=== PATIENT | female | born 1960 | race Caucasian/White ===

== ENCOUNTER 2017-07-24 16:47 | Observation (INO) | payer MEDICAID ==
[2017-07-24 16:48] VITALS: BMI 25.7
--- NOTE | 2017-07-24 17:45 | ED PDOC ---
HPI: Hypertension/Hypotension Time Seen by Provider: 07/24/17 16:56 Chief Complaint (Nursing): High Blood Pressure Chief Complaint (Provider): High blood pressure History Per: Patient Additional Complaint(s): 57yo female with history of hypertension, ESRD, diabetes, presents to ED for evaluation of elevated blood pressure. Patient was receiving her dialysis and just prior to completion, her blood pressure was markedly elevated and the session ended 30 minutes before completion. Patient states she takes Nifedapine 90mg but did not take it this morning; she reports the dosage of her Nifedapine was recently increased. Patient also states she feels generalized weakness, and mild headaches. For the past 2 weeks, she feels an "infection" in her left eye and for the past 4 weeks an "infection" to her right middle fingertip. She denies any fever, chills, chest pain, shortness of breath. She has no other medical complaints. PCP: Dr. Campbell Past Medical History Reviewed: Historical Data, Nursing Documentation, Vital Signs Vital Signs: Last Vital Signs Temp 97.7 F 07/24/17 16:50 Pulse 64 07/24/17 16:50 Resp 20 07/24/17 16:50 BP 233/99 H 07/24/17 17:19 Pulse Ox 98 07/24/17 16:50 - Medical History PMH: Bronchitis, COPD, Diabetes, HTN, End Stage Renal Disease, Chronic Kidney Disease Denies: HIV, Kidney Stones - Surgical History Other surgeries: AV shunt (previously on left arm but that malfunctioned, now on right arm) - Family History Family History: States: Unknown Family Hx, Diabetes, Hypertension - Social History Current smoker - smoking cessation education provided: Yes Alcohol: None Drugs: Denies - Immunization History Hx Tetanus Toxoid Vaccination: No Hx Influenza Vaccination: No Hx Pneumococcal Vaccination: No - Home Medications Home Medications: Ambulatory Orders Medication Instructions Recorded Aspirin [Aspirin Chewable] 81 mg PO DAILY 11/23/15 Atorvastatin [Lipitor] 40 mg PO DAILY 11/23/15 Cinacalcet [Sensipar] 60 mg PO DAILY 11/23/15 Clopidogrel [Plavix] 75 mg PO DAILY 11/23/15 Ferrous Sulfate [Feosol] 200 mg PO BID 11/23/15 NIFEdipine ER [Procardia XL] 90 mg PO DAILY 11/23/15 SITagliptin [Januvia] 50 mg PO DAILY 11/23/15 Saccharomyces Boulardi [Florastor] 250 mg PO DAILY 11/23/15 hydrALAZINE [Apresoline] 50 mg PO BID 11/23/15 - Allergies Allergies/Adverse Reactions: Allergies Allergy/AdvReac Type Severity Reaction Status Date / Time No Known Allergies Allergy Verified 07/24/17 16:49 Review of Systems ROS Statement: Except As Marked, All Systems Reviewed And Found Negative (as per HPI) Constitutional: Positive for: Weakness. Negative for: Fever, Chills Eyes: Positive for: Other (eye "infection") Cardiovascular: Positive for: Other (elevated blood pressure) Musculoskeletal: Positive for: Other ("infection" right middle finger) Neurological: Positive for: Headache Physical Exam - Reviewed Nursing Documentation Reviewed: Yes Vital Signs Reviewed: Yes - Physical Exam Appears: Positive for: Non-toxic, No Acute Distress (chronically ill appearing, tired) Head Exam: Positive for: ATRAUMATIC, NORMOCEPHALIC Skin: Positive for: Warm, Dry Eye Exam: Positive for: Other (ild swelling of left eyelid, no rtuthema, tosis or eyelid) ENT: Negative for: Pharyngeal Erythema, Tonsillar Exudate Neck: Positive for: Painless ROM, Supple Cardiovascular/Chest: Positive for: Regular Rate, Rhythm. Negative for: Murmur Respiratory: Positive for: Normal Breath Sounds. Negative for: Wheezing Gastrointestinal/Abdominal: Positive for: Soft. Negative for: Tenderness Back: Positive for: Normal Inspection. Negative for: Decreased ROM Extremity: Positive for: Other (Palpable thirll right upper extremity, no edema noted. RIGHT hand: 3rd digit fingertip with eschar lesion at distal point and diffuse edema/erythema of fingertip) Lymphatic: Negative for: Adenopathy Neurologic/Psych: Positive for: Alert. Negative for: Motor/Sensory Deficits - Laboratory Results Result Diagrams: 07/24/17 17:38 07/24/17 17:38 - ECG ECG: Positive for: Interpreted By Me, Viewed By Me ECG Rhythm: Positive for: Sinus Rhythm Interpretation Of ECG: Peaked waves V4, V5. Poor baseline. O2 Sat by Pulse Oximetry: 98 (RA) Pulse Ox Interpretation: Normal Medical Decision Making Medical Decision Making: Impression: Hypertension, end stage renal disease Differential diagnosis (including but not limited to): Acute on chronic renal failure, subdural hematoma, electrolyte abnormalities, malignant hypertension, fluid overload Plan: -- Labs -- CT Head w/o contrast -- Catapres 0.2 mg PO -- CXR Time: 1752 CXR FINDINGS: LUNGS: No active pulmonary disease. PLEURA: No significant pleural effusion identified, no pneumothorax apparent. CARDIOVASCULAR: Cardiomegaly, pulmonary vascular plethora. OSSEOUS STRUCTURES: No significant abnormalities. VISUALIZED UPPER ABDOMEN: Normal. OTHER FINDINGS: None. IMPRESSION: Cardiomegaly/pulmonary vascular congestion. No significant interval change compared to the prior examination(s). Time: 1830 CT Head FINDINGS: HEMORRHAGE: No intracranial hemorrhage. BRAIN: No mass effect or edema. No atrophy or chronic microvascular ischemic changes. VENTRICLES: Unremarkable. No hydrocephalus. CALVARIUM: Unremarkable. PARANASAL SINUSES: Unremarkable as visualized. No significant inflammatory changes. MASTOID AIR CELLS: Unremarkable as visualized. No inflammatory changes. OTHER FINDINGS: None. IMPRESSION: No acute intracranial abnormalities. No significant findings to account for the clinical presentation. Lab derangements consistent with renal failure, potassium wnl. BP improved but pt needs hospitalization for more stable BP management. Scribe Attestation: Documented by Yelena Cuello acting as a scribe for Sima Rivera MD. Provider Attestation: All medical record entries made by the Scribe were at my direction and personally dictated by me. I have reviewed the chart and agree that the record accurately reflects my personal performance of the history, physical exam, medical decision making, and the department course for this patient. I have also personally directed, reviewed, and agree with the discharge instructions and disposition. Disposition - Clinical Impression Clinical Impression: HTN (hypertension), Uncontrolled hypertension Discussed With DrJose: Hussain Campbell Counseled Patient/Family Regarding: Studies Performed, Diagnosis - Disposition Disposition Time: 19:40 Condition: FAIR - Pt Status Changed To: Hospital Disposition Of: Observation - POA Present On Arrival: None
[2017-07-24 18:12] LABS: BASO # 0.1 K/uL (0.0-0.2); BASO % 2.2 % (0.0-2.0); EOS # 0.1 K/uL (0.0-0.7); EOS % 2.5 % (0.0-4.0); HEMOGLOBIN 11.9 g/dL (12.0-16.0); LYMPH # 1.1 K/uL (1.0-4.3); LYMPH % 22.3 % (20.0-40.0); MEAN CELL VOLUME 87.6 fl (81.0-99.0); MEAN CORPUSCULAR HEMOGLOBIN 27.6 pg (27.0-31.0); MEAN CORPUSCULAR HGB CONC 31.4 g/dL (33.0-37.0); MEAN PLATELET VOLUME 10.8 fl (7.2-11.7); MONO # 0.4 K/uL (0.0-0.8); NEUT # 3.1 K/uL (1.8-7.0); RBC 4.32 Mil/uL (3.80-5.20); RED CELL DISTRIBUTION WIDTH 17.2 % (11.5-14.5); WHITE BLOOD COUNT 4.7 K/uL (4.8-10.8)
[2017-07-24 18:24] LABS: ALBUMIN 4.3 g/dL (3.5-5.0); CALCIUM 8.9 mg/dL (8.4-10.2)
[2017-07-24 18:26] LABS: INR 1.4 (0.9-1.2); PARTIAL THROMBOPLASTIN TIME 37.6 Seconds (25.6-37.1); PROTHROMBIN TIME 15.3 Seconds (9.8-13.1)
--- NOTE | 2017-07-24 18:27 | CT ---
PROCEDURE: CT HEAD WITHOUT CONTRAST. HISTORY: Hypertension COMPARISON: None available. TECHNIQUE: Axial computed tomography images were obtained through the head/brain without intravenous contrast. Radiation dose: Total exam DLP = 803.48 mGy-cm. This CT exam was performed using one or more of the following dose reduction techniques: Automated exposure control, adjustment of the mA and/or kV according to patient size, and/or use of iterative reconstruction technique. FINDINGS: HEMORRHAGE: No intracranial hemorrhage. BRAIN: No mass effect or edema. No atrophy or chronic microvascular ischemic changes. VENTRICLES: Unremarkable. No hydrocephalus. CALVARIUM: Unremarkable. PARANASAL SINUSES: Unremarkable as visualized. No significant inflammatory changes. MASTOID AIR CELLS: Unremarkable as visualized. No inflammatory changes. OTHER FINDINGS: None. IMPRESSION: No acute intracranial abnormalities. No significant findings to account for the clinical presentation.
--- NOTE | 2017-07-24 18:46 | RAD ---
HISTORY: Hypertension. COMPARISON: 11/22/2015 FINDINGS: LUNGS: No active pulmonary disease. PLEURA: No significant pleural effusion identified, no pneumothorax apparent. CARDIOVASCULAR: Cardiomegaly, pulmonary vascular plethora. OSSEOUS STRUCTURES: No significant abnormalities. VISUALIZED UPPER ABDOMEN: Normal. OTHER FINDINGS: None. IMPRESSION: Cardiomegaly/pulmonary vascular congestion. No significant interval change compared to the prior examination(s).
[2017-07-24 19:12] LABS: TROPONIN I 0.013 ng/mL (0.00-0.120)
[2017-07-24] MEDS ORDERED: NIFEdipine 90 mg ER Tab PO STA (23:09)
--- NOTE | 2017-07-24 23:38 | PCM.RRT ---
GRAIN SCOOPER Nurse Assessment - Situation GRAIN SCOOPER Responder Arrival Time: 23:02 Location: [address] [place] [address] Room Number: [id number] GRAIN SCOOPER Reason for Call: Hypertension GRAIN SCOOPER Called By: RN - IV IV Inserted during GRAIN SCOOPER?: No - Respiratory Oxygen Delivery Method: Room Air - Medication Medications Administered During GRAIN SCOOPER: hydralazine. procardia xl CPR started during GRAIN SCOOPER?: No I.Reason for GRAIN SCOOPER - A) Acute Change in Patient: Subjective: GRAIN SCOOPER was called for 57 y/o F with PMH of hypertension, ESRD, and diabetes for hypertensive emergency. Upon arrival, BP 235/93, PP65, Spo2 100%RA, patient was alert, awake, oriented and seemed agitated. Patient was given STAT Hydralazine 10mg IV and procardia xl 90mg PO. Patient remained stable at the end of GRAIN SCOOPER. Will follow up with patient for BP changes. - Constitutional Appears: No Acute Distress - Eyes Eye Exam: Normal appearance - Respiratory Exam Respiratory Exam: Clear to Ausculation Bilateral, NORMAL BREATHING PATTERN - Cardiovascular Exam Cardiovascular Exam: REGULAR RHYTHM - GI/Abdominal Exam GI & Abdominal Exam: Soft, Normal Bowel Sounds - Neurological Exam Neurological Exam: Alert, Awake, Oriented x3 - Extremities Exam Extremities Exam: Normal Capillary Refill
[2017-07-25] MEDS ORDERED: Mupirocin 2% Cream TOP SCH (09:00)
[2017-07-25] MEDS ORDERED: NIFEdipine 90 mg ER Tab PO SCH (09:00)
--- NOTE | 2017-07-25 09:27 | CP.PCM.HP ---
History of Present Illness - History of Present Illness History of Present Illness: CC: elevated BP HPI: 57 y/o woman w/ pmh of HTN, ESRD HD M/W/F, DM2, presented to ED for elevated blood pressure. Patient was receiving her dialysis as scheduled and prior to completion, her blood pressure was markedly elevated; thus ending the session 30 minutes before completion. Patient reports she takes Nifedapine 90mg but did not take it yesterday morning. Patient also states she feels generalized weakness, and mild headaches. Patient denies any fever, chills, chest pain, shortness of breath, nausea, vomiting, diarrhea, or dyauria. Patient has no other medical complaints. PMD: Dr. Campbell PMH: HTN, ESRD HD M/W/F, DM2 meds: see med list allergies: NKDA PSH: AV fistula on right arm, Av fistula on left arm (non-functioning), left 1st toe amputation Fam: HTN, DM2 SOC: denies smoking, alcohol, and drugs ROS: 12 points assessed and negative unless otherwise reported in HPI patient seen and examined this morning at bedside w/ Dr. Campbell Present on Admission - Present on Admission Any Indicators Present on Admission: No History of DVT/PE: No History of Uncontrolled Diabetes: No Urinary Catheter: No Decubitus Ulcer Present: No Review of Systems - Review of Systems All systems: reviewed and no additional remarkable complaints except - Constitutional Constitutional: Headache. absent: Chills, Fever - EENT Eyes: absent: Change in Vision - Cardiovascular Cardiovascular: absent: Chest Pain, Leg Edema, Palpitations - Respiratory Respiratory: absent: Cough, Dyspnea - Gastrointestinal Gastrointestinal: absent: Abdominal Pain, Diarrhea, Nausea, Vomiting - Genitourinary Genitourinary: absent: Dysuria - Integumentary Integumentary: absent: Rash Past Patient History - Past Medical History & Family History Past Medical History?: Yes - Past Social History Smoking Status: Never Smoked - CARDIAC Hx Cardiac Disorders: Yes Hx Hypertension: Yes - PULMONARY Hx Respiratory Disorders: Yes Hx Bronchitis: Yes Hx Chronic Obstructive Pulmonary Disease (COPD): Yes - NEUROLOGICAL Hx Neurological Disorder: No - HEENT Hx HEENT Problems: Yes Other/Comment: glasses - RENAL Hx Chronic Kidney Disease: Yes Hx Dialysis: Yes (mwf) Type of Dialysis Access: AV SHUNT Hx Kidney Stones: No - ENDOCRINE/METABOLIC Hx Endocrine Disorders: Yes Hx Diabetes Mellitus Type 2: Yes - HEMATOLOGICAL/ONCOLOGICAL Hx Blood Disorders: No Hx AIDS: No Hx Human Immunodeficiency Virus (HIV): No - INTEGUMENTARY Hx Dermatological Problems: Yes Other/Comment: dry skin - MUSCULOSKELETAL/RHEUMATOLOGICAL Hx Musculoskeletal Disorders: No Hx Falls: No - GASTROINTESTINAL Hx Gastrointestinal Disorders: No - GENITOURINARY/GYNECOLOGICAL Hx Genitourinary Disorders: No - PSYCHIATRIC Hx Psychophysiologic Disorder: No Hx Substance Use: No - SURGICAL HISTORY Hx Vascular Surgery: Yes (Right and Left AV fistula placement) Other/Comment: Left great toe amputation (2002); Tubal ligation - ANESTHESIA Hx Anesthesia: Yes Hx Anesthesia Reactions: No Meds Allergies/Adverse Reactions: Allergies Allergy/AdvReac Type Severity Reaction Status Date / Time No Known Allergies Allergy Verified 07/24/17 16:49 Physical Exam - Constitutional Appears: Non-toxic, No Acute Distress - Head Exam Head Exam: ATRAUMATIC, NORMAL INSPECTION, NORMOCEPHALIC - Eye Exam Eye Exam: Normal appearance - ENT Exam ENT Exam: Mucous Membranes Moist - Neck Exam Neck exam: Positive for: Full Rom. Negative for: Tenderness - Respiratory Exam Respiratory Exam: Clear to Auscultation Bilateral. absent: Accessory Muscle Use , Decreased Breath Sounds, Rales, Rhonchi, Wheezes, Respiratory Distress - Cardiovascular Exam Cardiovascular Exam: REGULAR RHYTHM. absent: Tachycardia - GI/Abdominal Exam GI & Abdominal Exam: Normal Bowel Sounds, Soft. absent: Distended, Tenderness - Extremities Exam Extremities exam: Negative for: calf tenderness, pedal edema, tenderness Additional comments: right middle finger ulcer - Neurological Exam Neurological exam: Alert, CN II-XII Intact, Oriented x3 - Skin Skin Exam: Dry, Normal Color, Warm Results - Vital Signs Recent Vital Signs: Last Vital Signs Temp 98.3 F 07/25/17 08:38 Pulse 60 07/25/17 08:38 Resp 18 07/25/17 08:38 BP 152/69 H 07/25/17 08:38 Pulse Ox 97 07/25/17 08:38 - Labs Result Diagrams: 07/24/17 17:38 07/24/17 17:38 Labs: Laboratory Results - last 24 hr 07/24/17 07/24/17 07/24/17 17:24 17:38 17:38 WBC 4.7 L RBC 4.32 Hgb 11.9 L Hct 37.8 MCV 87.6 D MCH 27.6 MCHC 31.4 L RDW 17.2 H Plt Count 110 L D MPV 10.8 Neut % (Auto) 65.0 Lymph % (Auto) 22.3 [place] % (Auto) 8.0 Eos % (Auto) 2.5 Baso % (Auto) 2.2 H Neut # (Auto) 3.1 Lymph # (Auto) 1.1 [place] # (Auto) 0.4 Eos # (Auto) 0.1 Baso # (Auto) 0.1 PT INR APTT Sodium 141 Potassium 5.0 Chloride 95 L Carbon Dioxide 21 L Anion Gap 30 H BUN 45 H Creatinine 4.6 H Est GFR ( Amer) 12 Est GFR (Non-Af Amer) 10 POC Glucose (mg/dL) 137 H Random Glucose 142 H Calcium 8.9 Phosphorus 3.3 Magnesium 2.2 Total Bilirubin 0.9 AST 29 ALT 34 Alkaline Phosphatase 177 H Troponin I 0.0130 NT-Pro-B Natriuret Pep 17928 H Total Protein 8.9 H Albumin 4.3 Globulin 4.5 H Albumin/Globulin Ratio 1.0 07/24/17 07/25/17 17:38 05:11 WBC RBC Hgb Hct MCV MCH MCHC RDW Plt Count MPV Neut % (Auto) Lymph % (Auto) [place] % (Auto) Eos % (Auto) Baso % (Auto) Neut # (Auto) Lymph # (Auto) [place] # (Auto) Eos # (Auto) Baso # (Auto) PT 15.3 H INR 1.4 H APTT 37.6 H Sodium Potassium Chloride Carbon Dioxide Anion Gap BUN Creatinine Est GFR ( Amer) Est GFR (Non-Af Amer) POC Glucose (mg/dL) 172 H Random Glucose Calcium Phosphorus Magnesium Total Bilirubin AST ALT Alkaline Phosphatase Troponin I NT-Pro-B Natriuret Pep Total Protein Albumin Globulin Albumin/Globulin Ratio Assessment & Plan (1) Hypertensive encephalopathy Status: Acute (2) HTN (hypertension) Status: Chronic (3) DM2 (diabetes mellitus, type 2) Status: Chronic (4) ESRD on dialysis Status: Chronic - Assessment and Plan (Free Text) Plan: c/w present management afebrile, non-tachycardic, BP improved (162/61 mm Hg) nephrology consult ordered CBC: 4.7>11.9/37.8<110 CMP: 141/5.0, 95/21, 45/4.6, glucose 142, AST 39, ALT 44, alk phos 177 phosphorous 3.3 magnesium 2.2 troponin 0.0130 pro-BNP 24606 (preserved EF CHF based on previous echo) head CT: no intracranial abnormalities, no hemorrhage CXR: no active pulmonary disease process c/w home medications start clonidine 0.2 mg PO Q8h mupirocin ointment for right middle finger ulcer f/u hand XR prophylactic measures: DVT heparin 5,000 units SC Q12 monitor for acute changes
--- NOTE | 2017-07-25 11:28 | CP.PCM.CON ---
History of Present Illness - History of Present Illness History of Present Illness: This patient is 57 years of age female known to me decision as disease on maintenance hemodialysis 3 times a week Monday patient was admitted to the emergency room because of high blood pressure also she was complaining of pain in the tip of the finger. Patient known to be noncompliant and she is on multiple antihypertensive medication but she is taking all the medications she is finding excuses not to take some medications also noncompliance with the dialysis . Past medical history end stage renal disease on dialysis Monday #2 hypertension #3 diabetes mellitus Social history not contributory Review of systems see below Review of Systems - Constitutional Constitutional: absent: Chills, Night Sweats - EENT Eyes: Blurred Vision Nose/Mouth/Throat: As Per HPI. absent: Nose Pain, Post Nasal Drip - Cardiovascular Cardiovascular: absent: Acrocyanosis, Chest Pain, Dyspnea, Edema, Palpitations - Respiratory Respiratory: absent: Cough, Dyspnea, Hemoptysis - Gastrointestinal Gastrointestinal: absent: Abdominal Pain, Coffee Ground Emesis - Genitourinary Genitourinary: Nocturia - Musculoskeletal Musculoskeletal: Muscle Weakness. absent: Back Pain, Numbness - Integumentary Integumentary: Dry Skin - Neurological Neurological: absent: Confusion, Numbness, Focal Weakness - Hematologic/Lymphatic Hematologic: absent: Easy Bleeding Past Patient History - Past Medical History & Family History Past Medical History?: Yes - Past Social History Smoking Status: Never Smoked - CARDIAC Hx Cardiac Disorders: Yes Hx Hypertension: Yes - PULMONARY Hx Respiratory Disorders: Yes Hx Bronchitis: Yes Hx Chronic Obstructive Pulmonary Disease (COPD): Yes - NEUROLOGICAL Hx Neurological Disorder: No - HEENT Hx HEENT Problems: Yes Other/Comment: glasses - RENAL Hx Chronic Kidney Disease: Yes Hx Dialysis: Yes (mwf) Type of Dialysis Access: AV SHUNT Hx Kidney Stones: No - ENDOCRINE/METABOLIC Hx Endocrine Disorders: Yes Hx Diabetes Mellitus Type 2: Yes - HEMATOLOGICAL/ONCOLOGICAL Hx Blood Disorders: No Hx AIDS: No Hx Human Immunodeficiency Virus (HIV): No - INTEGUMENTARY Hx Dermatological Problems: Yes Other/Comment: dry skin - MUSCULOSKELETAL/RHEUMATOLOGICAL Hx Musculoskeletal Disorders: No Hx Falls: No - GASTROINTESTINAL Hx Gastrointestinal Disorders: No - GENITOURINARY/GYNECOLOGICAL Hx Genitourinary Disorders: No - PSYCHIATRIC Hx Psychophysiologic Disorder: No Hx Substance Use: No - SURGICAL HISTORY Hx Vascular Surgery: Yes (Right and Left AV fistula placement) Other/Comment: Left great toe amputation (2002); Tubal ligation - ANESTHESIA Hx Anesthesia: Yes Hx Anesthesia Reactions: No Meds Allergies/Adverse Reactions: Allergies Allergy/AdvReac Type Severity Reaction Status Date / Time No Known Allergies Allergy Verified 07/24/17 16:49 - Medications Medications: Current Medications Acetaminophen (Tylenol 325mg Tab) 325 mg PO Q4 PRN PRN Reason: Headache Aspirin (Aspirin Chewable) 81 mg PO DAILY [facility] Last Admin: 07/25/17 09:21 Dose: 81 mg Atorvastatin Calcium (Lipitor) 40 mg PO HS [facility] Cinacalcet (Sensipar) 90 mg PO DAILY [facility] Last Admin: 07/25/17 09:20 Dose: 90 mg Clonidine HCl (Catapres) 0.1 mg PO Q6 PRN PRN Reason: Other Clonidine HCl (Catapres) 0.2 mg PO Q8 [facility] Last Admin: 07/25/17 10:09 Dose: 0.2 mg Clopidogrel Bisulfate (Plavix) 75 mg PO DAILY [facility] Heparin Sodium (Porcine) (Heparin) 5,000 units SC Q12 [facility] PRN Reason: Protocol Last Admin: 07/25/17 09:22 Dose: 5,000 units Hydralazine HCl (Apresoline) 20 mg PO DAILY [facility] Last Admin: 07/25/17 09:21 Dose: 20 mg Mupirocin (Bactroban Cream) 1 applic TOP BID [facility] Last Admin: 07/25/17 10:14 Dose: 1 applic Nifedipine (Procardia Xl) 90 mg PO DAILY [facility] Last Admin: 07/25/17 09:21 Dose: 90 mg Sitagliptin Phosphate (Januvia) 25 mg PO DAILY [facility] Physical Exam - Constitutional Appears: No Acute Distress - Eye Exam Eye Exam: absent: Conjunctival injection - ENT Exam ENT Exam: Mucous Membranes Moist - Neck Exam Neck exam: Negative for: Lymphadenopathy - Respiratory Exam Respiratory Exam: absent: Chest Wall Tenderness, NORMAL BREATHING PATTERN - Cardiovascular Exam Cardiovascular Exam: REGULAR RHYTHM. absent: Gallop, JVD, Rubs - GI/Abdominal Exam GI & Abdominal Exam: Normal Bowel Sounds. absent: Guarding - Extremities Exam Extremities exam: Negative for: calf tenderness - Back Exam Back exam: absent: CVA tenderness (L), CVA tenderness (R) - Neurological Exam Neurological exam: Alert - Psychiatric Exam Psychiatric exam: Normal Affect Results - Vital Signs Recent Vital Signs: Last Vital Signs Temp 98.3 F 07/25/17 08:38 Pulse 57 L 07/25/17 10:09 Resp 18 07/25/17 08:38 BP 158/68 H 07/25/17 10:09 Pulse Ox 97 07/25/17 08:38 - Labs Result Diagrams: 07/24/17 17:38 07/24/17 17:38 Labs: Laboratory Results - last 24 hr 07/24/17 07/24/17 07/24/17 17:24 17:38 17:38 WBC 4.7 L RBC 4.32 Hgb 11.9 L Hct 37.8 MCV 87.6 D MCH 27.6 MCHC 31.4 L RDW 17.2 H Plt Count 110 L D MPV 10.8 Neut % (Auto) 65.0 Lymph % (Auto) 22.3 [place] % (Auto) 8.0 Eos % (Auto) 2.5 Baso % (Auto) 2.2 H Neut # (Auto) 3.1 Lymph # (Auto) 1.1 [place] # (Auto) 0.4 Eos # (Auto) 0.1 Baso # (Auto) 0.1 PT INR APTT Sodium 141 Potassium 5.0 Chloride 95 L Carbon Dioxide 21 L Anion Gap 30 H BUN 45 H Creatinine 4.6 H Est GFR ( Amer) 12 Est GFR (Non-Af Amer) 10 POC Glucose (mg/dL) 137 H Random Glucose 142 H Calcium 8.9 Phosphorus 3.3 Magnesium 2.2 Total Bilirubin 0.9 AST 29 ALT 34 Alkaline Phosphatase 177 H Troponin I 0.0130 NT-Pro-B Natriuret Pep 60744 H Total Protein 8.9 H Albumin 4.3 Globulin 4.5 H Albumin/Globulin Ratio 1.0 07/24/17 07/25/17 07/25/17 17:38 05:11 11:17 WBC RBC Hgb Hct MCV MCH MCHC RDW Plt Count MPV Neut % (Auto) Lymph % (Auto) [place] % (Auto) Eos % (Auto) Baso % (Auto) Neut # (Auto) Lymph # (Auto) [place] # (Auto) Eos # (Auto) Baso # (Auto) PT 15.3 H INR 1.4 H APTT 37.6 H Sodium Potassium Chloride Carbon Dioxide Anion Gap BUN Creatinine Est GFR ( Amer) Est GFR (Non-Af Amer) POC Glucose (mg/dL) 172 H 209 H Random Glucose Calcium Phosphorus Magnesium Total Bilirubin AST ALT Alkaline Phosphatase Troponin I NT-Pro-B Natriuret Pep Total Protein Albumin Globulin Albumin/Globulin Ratio Assessment & Plan (1) Chronic kidney disease with end stage renal failure on dialysis Assessment and Plan: End stage renal disease patient on dialysis she was admitted because of uncontrolled hypertension blood pressure was elevated and she has not been taking her antihypertensive medications Patient has a lot of counseling . PATIENT has this in the tip of the right middle finger I suggested dual x-ray for that and continue with the antibiotics patient needed to be referred to vascular surgeon to check the shunt on that arm to make sure it's not ischemic sore. I discussed the case with the nurse practitioner and we went over all medications. Other medical problem hyperphosphatemia and secondary hyperparathyroidism. Status: Acute (2) Uncontrolled hypertension Status: Chronic
--- NOTE | 2017-07-25 11:44 | CP.PCM.PCO ---
Assessment & Plan - Assessment and Plan (Free Text) Assessment: Patient admitted for CHF with complaints of SOB. Patient c/o dryness to eyes, Rx to be given. Necrotic area noted to tip of right middle finger which is painful to touch. Patient states this occurred two weeks ago of unknown origin. Patient denies pain to other areas. Lungs clear, negative for edema. BP improved. Afebrile Patient cleared for d/c today. Care discussed with Dr. Campbell and Dr. Mai.Patient in no apparent distress and ready to go home. Rx given for all medications as discussed
[2017-07-25 12:56] VITALS: BP 144/53; PULSE 54; RESP 20; TEMP 97.6; O2SAT 96
--- NOTE | 2017-07-25 13:29 | RAD ---
PROCEDURE: Right middle finger radiographs. HISTORY: finger swelling COMPARISON: None. TECHNIQUE: AP radiograph of the right hand, as well as spot oblique and lateral images of right middle finger were obtained. FINDINGS: RIGHT MIDDLE FINGER: Right middle finger normal, without fracture of focal lesion. Remainder of the right hand (as seen on the AP view) grossly unremarkable. JOINTS: Mild osteoarthritic changes. SOFT TISSUES: Soft tissue swelling primarily affecting the 2nd and 3rd digits. OTHER FINDINGS: Diffuse vascular calcifications. IMPRESSION: Soft tissue swelling without acute articular or osseous abnormality.
== END 2017-07-25 15:07 | disposition home or self-care (01) ==
LOC: H.ER 16:47 → H.ERHOLD 19:40 → H.TEL 22:42
PROVIDERS: ADMIT Internal Medicine; ATTEND Internal Medicine
DX: I12.0 Hypertensive chronic kidney disease with stage 5 chronic kidney disease or end stage renal disease (principal); E11.22 Type 2 diabetes mellitus with diabetic chronic kidney disease; N18.6 End stage renal disease; Z99.2 Dependence on renal dialysis; E83.39 Other disorders of phosphorus metabolism; N25.81 Secondary hyperparathyroidism of renal origin; Z91.14 Patient's other noncompliance with medication regimen; F17.200 Nicotine dependence, unspecified, uncomplicated; Z89.412 Acquired absence of left great toe; H04.123 Dry eye syndrome of bilateral lacrimal glands
CPT/HCPCS: 70450; 71045; 73140; 80053; 82948; 83735; 83880; 84100; 84484; 85025; 85610; 85730; 99285; G0378; J0360; J1644

== ENCOUNTER 2018-01-31 15:14 | Inpatient (IN) | payer MEDICAID ==
[2018-01-31 15:14] VITALS: BMI 25.7
--- NOTE | 2018-01-31 16:32 | ED PDOC ---
HPI: General Adult Time Seen by Provider: 01/31/18 15:29 Chief Complaint (Nursing): Medical Clearance Chief Complaint (Provider): Medical Clearance History Per: Human Resources Vice President ([id number]) Additional Complaint(s): Carlie Sanchez is a 57 year old female with a past medical history of HTN, diabetes and chronic kidney disease, who presents to the emergency department after being sent from dialysis for low heart rate, which was in the 33-38 bpm. P atcarlos states she was examined by doctors there and that she was advised to finish her dialysis. She states she had a minimal headache, which has now resolved after taking Tylenol. Patient further reports that her PMD has recently decreased one of her hypertensive medications, carvedilol. She denies having any chest pain, shortness of breath, or any dizziness. PMD: Shiv Mai Past Medical History Reviewed: Historical Data, Nursing Documentation, Vital Signs Vital Signs: Last Vital Signs Temp 97.8 F 01/31/18 15:18 Pulse 55 L 01/31/18 15:18 Resp 16 01/31/18 15:18 BP 174/70 H 01/31/18 15:18 Pulse Ox 98 01/31/18 15:18 - Medical History PMH: Bronchitis, COPD, Diabetes, HTN, End Stage Renal Disease, Chronic Kidney Disease Denies: HIV, Kidney Stones - Surgical History Surgical History: No Surg Hx - Family History Family History: States: Diabetes, Hypertension - Immunization History Hx Tetanus Toxoid Vaccination: No Hx Influenza Vaccination: No Hx Pneumococcal Vaccination: No - Home Medications Home Medications: Ambulatory Orders Medication Instructions Recorded Aspirin [Aspirin Chewable] 81 mg PO DAILY #30 chew 07/25/17 Atorvastatin [Lipitor] 40 mg PO DAILY #30 tab 07/25/17 Lisinopril [Prinivil] 20 mg PO DAILY #30 tablet 07/25/17 NIFEdipine ER [Procardia XL] 90 mg PO DAILY #30 ter 07/25/17 Carvedilol [Coreg] 12.5 mg PO Q12 01/31/18 Cinacalcet [Sensipar] 90 mg PO MWF 01/31/18 Sevelamer Carbonate [Renvela] 2,400 mg PO TID 01/31/18 - Allergies Allergies/Adverse Reactions: Allergies Allergy/AdvReac Type Severity Reaction Status Date / Time vancomycin Allergy ITCHING Verified 01/31/18 15:16 Review of Systems ROS Statement: Except As Marked, All Systems Reviewed And Found Negative Cardiovascular: Positive for: Other (low heart rate ). Negative for: Chest Pain Respiratory: Negative for: Shortness of Breath Neurological: Positive for: Headache (resolved after tylenol). Negative for: Dizziness Physical Exam - Reviewed Nursing Documentation Reviewed: Yes Vital Signs Reviewed: Yes - Physical Exam Appears: Positive for: Non-toxic, No Acute Distress Head Exam: Positive for: ATRAUMATIC, NORMOCEPHALIC Skin: Positive for: Normal Color, Warm, Dry Eye Exam: Positive for: Normal appearance, EOMI, PERRL Neck: Positive for: Normal, Painless ROM, Supple Cardiovascular/Chest: Positive for: Bradycardia (with regular rhythm ). Negative for: Murmur Respiratory: Positive for: Normal Breath Sounds. Negative for: Respiratory Distress Gastrointestinal/Abdominal: Positive for: Normal Exam, Soft. Negative for: Tenderness Back: Positive for: Normal Inspection. Negative for: L CVA Tenderness, R CVA Tenderness, Vertebral Tenderness Extremity: Positive for: Normal ROM. Negative for: Pedal Edema, Deformity Neurologic/Psych: Positive for: Alert, Oriented (x3). Negative for: Motor/Sensory Deficits - Laboratory Results Result Diagrams: 02/02/18 04:25 02/02/18 04:25 - ECG O2 Sat by Pulse Oximetry: 98 (RA) Pulse Ox Interpretation: Normal Medical Decision Making Medical Decision Making: Initial Time: 15:30 Initial Impression: Bradycardia Initial Plan: --EKG --Glucose Scribe Attestation: Documented by Edmar Smith, acting as a scribe for Renee Ramirez MD Provider Scribe Attestation: All medical record entries made by the Scribe were at my direction and personally dictated by me. I have reviewed the chart and agree that the record accurately reflects my personal performance of the history, physical exam, medical decision making, and the department course for this patient. I have also personally directed, reviewed, and agree with the discharge instructions and disposition. Disposition - Clinical Impression Clinical Impression: Symptomatic bradycardia - Patient ED Disposition Is Patient to be Admitted: Yes - Disposition Disposition Time: 19:16 Condition: STABLE - Pt Status Changed To: Hospital Disposition Of: Observation - POA Present On Arrival: None
--- NOTE | 2018-01-31 18:50 | CT ---
Date of service: 01/31/2018 PROCEDURE: CT HEAD WITHOUT CONTRAST. HISTORY: GARCÍA COMPARISON: Noncontrast head CT performed 01/31/18 TECHNIQUE: Axial computed tomography images were obtained through the head/brain without intravenous contrast. Radiation dose: Total exam DLP = 765.37 mGy-cm. This CT exam was performed using one or more of the following dose reduction techniques: Automated exposure control, adjustment of the mA and/or kV according to patient size, and/or use of iterative reconstruction technique. FINDINGS: HEMORRHAGE: No intracranial hemorrhage. BRAIN: Diffuse atrophy with prominence of the ventricles and sulci noted. No mass effect or edema. Intracranial atherosclerosis. Scattered periventricular and subcortical white matter hypodensities, which are nonspecific, but often seen with chronic microvascular ischemic disease. 5 mm chronic appearing right basal ganglia lacunar infarct. Please note that MRI with diffusion imaging is more sensitive in the detection of acute ischemic event. VENTRICLES: No hydrocephalus. CALVARIUM: Unremarkable. PARANASAL SINUSES: Unremarkable as visualized. No significant inflammatory changes. MASTOID AIR CELLS: Unremarkable as visualized. No inflammatory changes. OTHER FINDINGS: None. IMPRESSION: No acute intracranial pathology identified.
[2018-01-31 18:53] LABS: BASO # 0.1 K/uL (0.0-0.2); BASO % 1.5 % (0.0-2.0); EOS # 0.1 K/uL (0.0-0.7); EOS % 1.7 % (0.0-4.0); HEMOGLOBIN 10.3 g/dL (12.0-16.0); LYMPH # 0.9 K/uL (1.0-4.3); LYMPH % 19.2 % (20.0-40.0); MEAN CELL VOLUME 87.8 fl (81.0-99.0); MEAN CORPUSCULAR HEMOGLOBIN 29.1 pg (27.0-31.0); MEAN CORPUSCULAR HGB CONC 33.1 g/dL (33.0-37.0); MEAN PLATELET VOLUME 10.4 fl (7.2-11.7); MONO # 0.5 K/uL (0.0-0.8); MONO % 9.8 % (0.0-10.0); NEUT # 3.1 K/uL (1.8-7.0); NEUT % 67.8 % (50.0-75.0); NRBC % 0.1 % (0.0-0.0); RBC 3.54 Mil/uL (3.80-5.20); RED CELL DISTRIBUTION WIDTH 18.1 % (11.5-14.5); WHITE BLOOD COUNT 4.6 K/uL (4.8-10.8)
[2018-01-31 18:59] LABS: ALBUMIN 3.8 g/dL (3.5-5.0)
[2018-01-31 19:17] LABS: TROPONIN I 0.015 ng/mL (0.00-0.120)
[2018-01-31] MEDS ORDERED: NIFEdipine 30 mg ER Tab PO ONE (23:00)
--- NOTE | 2018-02-01 07:14 | CARD ---
APPROVED REPORT Date of service: 01/31/2018 EKG Measurement Heart [id number] <Conclusion> Sinus bradycardia Left axis deviation Left bundle branch block Abnormal ECG
--- NOTE | 2018-02-01 07:48 | RAD ---
Date of service: 01/31/2018 HISTORY: Bradycardia COMPARISON: Frontal chest radiograph 07/24/2017. FINDINGS: LUNGS: No active pulmonary disease. PLEURA: Right pleural effusion blunts the right costophrenic sulcus with none appreciated at the left. No pneumothorax apparent. CARDIOVASCULAR: No aortic atherosclerotic calcification present. Cardiomegaly appears stable. Borderline pulmonary vascular congestion. OSSEOUS STRUCTURES: No significant abnormalities. VISUALIZED UPPER ABDOMEN: Normal. OTHER FINDINGS: None. IMPRESSION: Cardiomegaly appears stable. Borderline pulmonary vascular congestion. No definite airspace disease bilaterally. Trace right pleural effusion is in question with none definitely at the left.
--- NOTE | 2018-02-01 08:12 | CP.PCM.HP ---
<Clari Boland - Last Filed: 02/01/18 11:19> History of Present Illness - History of Present Illness History of Present Illness: 57 year old female with a past medical history of HTN, diabetes and chronic kidney disease on HD who presents to the ED sent from dialysis center for low heart rate, which was in the 33-38 bpm. She states she had a minimal headache. Patient reports that her PMD has recently decreased one of her hypertensive medications, carvedilol. Otherwise she denies having any chest pain, shortness of breath, or any dizziness, nausea, vomiting. No recent diarrhea or cons tipation. PMD: Dr Mai PMH: Bronchitis, COPD, Diabetes, HTN, End Stage Renal Disease, Chronic Kidney Disease Meds: as bellow PSH: denies FMH: DM and HTN Allergies: vancomycin SH: denies tobacco, etoh, ilicit drugs. Present on Admission - Present on Admission Any Indicators Present on Admission: No Review of Systems - Review of Systems All systems: reviewed and no additional remarkable complaints except (HPI) Past Patient History - Past Medical History & Family History Past Medical History?: Yes - Past Social History Smoking Status: Never Smoked - CARDIAC Hx Cardiac Disorders: Yes Hx Hypercholesterolemia: Yes Hx Hypertension: Yes - PULMONARY Hx Respiratory Disorders: Yes Hx Bronchitis: Yes Hx Chronic Obstructive Pulmonary Disease (COPD): Yes - NEUROLOGICAL Hx Neurological Disorder: No - HEENT Hx HEENT Problems: No - RENAL Hx Chronic Kidney Disease: Yes Hx Dialysis: Yes Type of Dialysis Access: KARLA AV Fistula Date of Last Dialysis Treatment: 01/31/18 - ENDOCRINE/METABOLIC Hx Endocrine Disorders: Yes Hx Diabetes Mellitus Type 2: Yes - HEMATOLOGICAL/ONCOLOGICAL Hx Blood Disorders: No Hx Human Immunodeficiency Virus (HIV): No - INTEGUMENTARY Hx Dermatological Problems: No - MUSCULOSKELETAL/RHEUMATOLOGICAL Hx Musculoskeletal Disorders: No Hx Falls: No - GASTROINTESTINAL Hx Gastrointestinal Disorders: No - GENITOURINARY/GYNECOLOGICAL Hx Genitourinary Disorders: No - PSYCHIATRIC Hx Psychophysiologic Disorder: No Hx Substance Use: No - SURGICAL HISTORY Hx Surgeries: Yes Hx Vascular Surgery: Yes (Right and Left AV fistula placement) Other/Comment: Left great toe amputation (2002); Tubal ligation - ANESTHESIA Hx Anesthesia: Yes Hx Anesthesia Reactions: No Hx Malignant Hyperthermia: No Meds Allergies/Adverse Reactions: Allergies Allergy/AdvReac Type Severity Reaction Status Date / Time vancomycin Allergy ITCHING Verified 01/31/18 15:16 Physical Exam - Constitutional Appears: No Acute Distress - Head Exam Head Exam: NORMAL INSPECTION - Eye Exam Eye Exam: EOMI - Respiratory Exam Respiratory Exam: Clear to Auscultation Bilateral - Cardiovascular Exam Cardiovascular Exam: Bradycardia, REGULAR RHYTHM - GI/Abdominal Exam GI & Abdominal Exam: Soft. absent: Distended, Tenderness - Extremities Exam Extremities exam: Negative for: calf tenderness - Neurological Exam Neurological exam: Alert, CN II-XII Intact, Oriented x3 - Skin Skin Exam: Dry, Warm Results - Vital Signs Recent Vital Signs: Last Vital Signs Temp 98.6 F 02/01/18 08:04 Pulse 57 L 02/01/18 08:04 Resp 18 02/01/18 08:04 BP 182/81 H 02/01/18 08:04 Pulse Ox 98 02/01/18 08:04 - Labs Result Diagrams: 01/31/18 18:46 01/31/18 18:46 Labs: Laboratory Results - last 24 hr 01/31/18 01/31/18 01/31/18 16:08 18:46 18:46 WBC 4.6 L RBC 3.54 L Hgb 10.3 L Hct 31.1 L MCV 87.8 MCH 29.1 MCHC 33.1 RDW 18.1 H Plt Count 115 L MPV 10.4 Neut % (Auto) 67.8 Lymph % (Auto) 19.2 L Ocean % (Auto) 9.8 Eos % (Auto) 1.7 Baso % (Auto) 1.5 Neut # (Auto) 3.1 Lymph # (Auto) 0.9 L [place] # (Auto) 0.5 Eos # (Auto) 0.1 Baso # (Auto) 0.1 Sodium 137 Potassium 4.2 Chloride 98 Carbon Dioxide 29 Anion Gap 14 BUN 24 H Creatinine 3.1 H Est GFR ( Amer) 19 Est GFR (Non-Af Amer) 15 POC Glucose (mg/dL) 149 H Random Glucose 237 H Calcium 9.0 Total Bilirubin 0.5 AST 25 ALT 22 Alkaline Phosphatase 101 Troponin I 0.0150 Total Protein 7.7 Albumin 3.8 Globulin 3.8 Albumin/Globulin Ratio 1.0 01/31/18 02/01/18 02/01/18 23:00 05:16 05:43 WBC RBC Hgb Hct MCV MCH MCHC RDW Plt Count MPV Neut % (Auto) Lymph % (Auto) Ocean % (Auto) Eos % (Auto) Baso % (Auto) Neut # (Auto) Lymph # (Auto) Ocean # (Auto) Eos # (Auto) Baso # (Auto) Sodium Potassium Chloride Carbon Dioxide Anion Gap BUN Creatinine Est GFR ( Amer) Est GFR (Non-Af Amer) POC Glucose (mg/dL) 151 H 154 H Random Glucose Calcium Total Bilirubin AST ALT Alkaline Phosphatase Troponin I 0.0160 Total Protein Albumin Globulin Albumin/Globulin Ratio Assessment & Plan - Assessment and Plan (Free Text) Assessment: 57 year old female with a past medical history of HTN, diabetes and chronic kidney disease on HD admitted due to symptomatic bradycardia. Plan: - admit to tele - HR 55, no chest pain - labs reviewed troponin x2 negative - CXR negative for lung disease - Head CT: negative - Cardiology consulted, input appreciated. - resume home meds - f/u labs in am - rest of plan as ordered Case seen and examined with Dr Campbell <Hussain Campbell - Last Filed: 02/03/18 08:19> Results - Vital Signs Recent Vital Signs: Last Vital Signs Temp 98.7 F 02/03/18 04:40 Pulse 68 02/03/18 04:40 Resp 18 02/03/18 04:40 BP 191/75 H 02/03/18 04:40 Pulse Ox 98 02/03/18 04:40 - Labs Result Diagrams: 02/02/18 04:25 02/02/18 04:25 Labs: Laboratory Results - last 24 hr 02/02/18 02/02/18 11:14 15:48 POC Glucose (mg/dL) 195 H 155 H Assessment & Plan - Assessment and Plan (Free Text) Assessment: Patient was personally seen and examined by me in rounds with residents. Available labs and diagnostic data reviewed. Case, Patient's condition and management plan discussed with residents in rounds. Agree with resident's progress note. Plan: As ordered.
[2018-02-01] MEDS: Insulin Lispro (humaLOG) 100 Units/ml Inj SC SCH ×4 (08:54→22:16)
[2018-02-01] MEDS: NIFEdipine 90 mg ER Tab PO SCH (08:55)
[2018-02-01] MEDS: Pantoprazole 20 mg EC Tab PO SCH (12:31)
--- NOTE | 2018-02-01 14:44 | CP.PCM.CON ---
History of Present Illness - History of Present Illness History of Present Illness: Ms. Yeimi Santacruz is a 49-year-old female past medical history hypertension diabetes chronic kidney disease with hemodialysis Monday was a Monday who presented with a bradycardic episode while on hemodialysis yesterday her primary doctor Dr. 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 patient reports taking aspirin 81 mg carvedilol 12-1/2 mg Procardia 90 mg clonidine 0.2 once or twice a day lisinopril 20 mg Sensipar 90 mg Lipitor 40 mg and phosphorus replacement patient does not know why she is on the beta-amber or clonidine as she was prescribed the list at another institution patient denies taking her medications yesterday aside from the clonidine and Procardia Review of Systems - Review of Systems Systems not reviewed;Unavailable: Acuity of Condition - Constitutional Constitutional: As Per HPI - EENT Eyes: As Per HPI Ears: As Per HPI Nose/Mouth/Throat: As Per HPI - Breasts Breasts: As Per HPI - Cardiovascular Cardiovascular: As Per HPI - Respiratory Respiratory: As Per HPI - Gastrointestinal Gastrointestinal: As Per HPI - Genitourinary Genitourinary: As Per HPI - Reproductive: Female Reproductive:Female: As Per HPI - Menstruation Menstruation: As Per HPI - Musculoskeletal Musculoskeletal: As Per HPI - Integumentary Integumentary: As Per HPI - Neurological Neurological: As Per HPI - Psychiatric Psychiatric: As Per HPI - Endocrine Endocrine: As Per HPI - Hematologic/Lymphatic Hematologic: As Per HPI Past Patient History - Past Medical History & Family History Past Medical History?: Yes - Past Social History Smoking Status: Never Smoked - CARDIAC Hx Cardiac Disorders: Yes Hx Hypercholesterolemia: Yes Hx Hypertension: Yes - PULMONARY Hx Respiratory Disorders: Yes Hx Bronchitis: Yes Hx Chronic Obstructive Pulmonary Disease (COPD): Yes - NEUROLOGICAL Hx Neurological Disorder: No - HEENT Hx HEENT Problems: No - RENAL Hx Chronic Kidney Disease: Yes Hx Dialysis: Yes Type of Dialysis Access: KARLA AV Fistula Date of Last Dialysis Treatment: 01/31/18 - ENDOCRINE/METABOLIC Hx Endocrine Disorders: Yes Hx Diabetes Mellitus Type 2: Yes - HEMATOLOGICAL/ONCOLOGICAL Hx Blood Disorders: No Hx Human Immunodeficiency Virus (HIV): No - INTEGUMENTARY Hx Dermatological Problems: No - MUSCULOSKELETAL/RHEUMATOLOGICAL Hx Musculoskeletal Disorders: No Hx Falls: No - GASTROINTESTINAL Hx Gastrointestinal Disorders: No - GENITOURINARY/GYNECOLOGICAL Hx Genitourinary Disorders: No - PSYCHIATRIC Hx Psychophysiologic Disorder: No Hx Substance Use: No - SURGICAL HISTORY Hx Surgeries: Yes Hx Vascular Surgery: Yes (Right and Left AV fistula placement) Other/Comment: Left great toe amputation (2002); Tubal ligation - ANESTHESIA Hx Anesthesia: Yes Hx Anesthesia Reactions: No Hx Malignant Hyperthermia: No Meds Allergies/Adverse Reactions: Allergies Allergy/AdvReac Type Severity Reaction Status Date / Time vancomycin Allergy ITCHING Verified 01/31/18 15:16 - Medications Medications: Current Medications Aspirin (Aspirin Chewable) 81 mg PO DAILY [facility] Last Admin: 02/01/18 08:48 Dose: 81 mg Atorvastatin Calcium (Lipitor) 40 mg PO DAILY [facility] Last Admin: 02/01/18 08:55 Dose: 40 mg Carvedilol (Coreg) 12.5 mg PO Q12 [facility] Last Admin: 02/01/18 08:48 Dose: 12.5 mg Cinacalcet (Sensipar) 90 mg PO MWF [facility] Heparin Sodium (Porcine) (Heparin) 5,000 units SC Q8 [facility]; Protocol Last Admin: 02/01/18 08:49 Dose: 5,000 units Insulin Human Lispro (Humalog) 0 units SC ACHS [facility]; Protocol Last Admin: 02/01/18 12:29 Dose: 1 unit Lisinopril (Zestril) 20 mg PO DAILY [facility] Last Admin: 02/01/18 08:57 Dose: 20 mg Nifedipine (Procardia Xl) 90 mg PO DAILY [facility] Last Admin: 02/01/18 08:55 Dose: 90 mg Pantoprazole Sodium (Protonix Ec Tab) 20 mg PO DAILY [facility] Last Admin: 02/01/18 12:31 Dose: 20 mg Sevelamer Carbonate (Renvela) 2,400 mg PO TID [facility] Last Admin: 02/01/18 12:32 Dose: 2,400 mg Physical Exam - Constitutional Appears: Well - Head Exam Head Exam: ATRAUMATIC, NORMAL INSPECTION, NORMOCEPHALIC - Eye Exam Eye Exam: EOMI, Normal appearance, PERRL Pupil Exam: NORMAL ACCOMODATION, PERRL - ENT Exam ENT Exam: Mucous Membranes Moist, Normal Exam - Neck Exam Neck exam: Positive for: Normal Inspection - Respiratory Exam Respiratory Exam: Clear to Auscultation Bilateral, NORMAL BREATHING PATTERN - Cardiovascular Exam Cardiovascular Exam: REGULAR RHYTHM, RRR, +S1, +S2, Systolic Murmur - GI/Abdominal Exam GI & Abdominal Exam: Normal Bowel Sounds, Soft. absent: Tenderness - Extremities Exam Extremities exam: Positive for: normal inspection - Back Exam Back exam: NORMAL INSPECTION - Neurological Exam Neurological exam: Alert, CN II-XII Intact, Normal Gait, Oriented x3, Reflexes Normal - Psychiatric Exam Psychiatric exam: Normal Affect, Normal Mood - Skin Skin Exam: Dry, Intact, Normal Color, Warm Results - Vital Signs Recent Vital Signs: Last Vital Signs Temp 98.7 F 02/01/18 12:01 Pulse 60 02/01/18 12:01 Resp 18 02/01/18 12:01 BP 175/69 H 02/01/18 12:01 Pulse Ox 98 02/01/18 12:01 - Labs Result Diagrams: 01/31/18 18:46 01/31/18 18:46 Labs: Laboratory Results - last 24 hr 01/31/18 01/31/18 01/31/18 16:08 18:46 18:46 WBC 4.6 L RBC 3.54 L Hgb 10.3 L Hct 31.1 L MCV 87.8 MCH 29.1 MCHC 33.1 RDW 18.1 H Plt Count 115 L MPV 10.4 Neut % (Auto) 67.8 Lymph % (Auto) 19.2 L Dale % (Auto) 9.8 Eos % (Auto) 1.7 Baso % (Auto) 1.5 Neut # (Auto) 3.1 Lymph # (Auto) 0.9 L Dale # (Auto) 0.5 Eos # (Auto) 0.1 Baso # (Auto) 0.1 Sodium 137 Potassium 4.2 Chloride 98 Carbon Dioxide 29 Anion Gap 14 BUN 24 H Creatinine 3.1 H Est GFR ( Amer) 19 Est GFR (Non-Af Amer) 15 POC Glucose (mg/dL) 149 H Random Glucose 237 H Calcium 9.0 Total Bilirubin 0.5 AST 25 ALT 22 Alkaline Phosphatase 101 Troponin I 0.0150 Total Protein 7.7 Albumin 3.8 Globulin 3.8 Albumin/Globulin Ratio 1.0 01/31/18 02/01/18 02/01/18 23:00 05:16 05:43 WBC RBC Hgb Hct MCV MCH MCHC RDW Plt Count MPV Neut % (Auto) Lymph % (Auto) Dale % (Auto) Eos % (Auto) Baso % (Auto) Neut # (Auto) Lymph # (Auto) Dale # (Auto) Eos # (Auto) Baso # (Auto) Sodium Potassium Chloride Carbon Dioxide Anion Gap BUN Creatinine Est GFR ( Amer) Est GFR (Non-Af Amer) POC Glucose (mg/dL) 151 H 154 H Random Glucose Calcium Total Bilirubin AST ALT Alkaline Phosphatase Troponin I 0.0160 Total Protein Albumin Globulin Albumin/Globulin Ratio 02/01/18 02/01/18 11:11 12:00 WBC RBC Hgb Hct MCV MCH MCHC RDW Plt Count MPV Neut % (Auto) Lymph % (Auto) Dale % (Auto) Eos % (Auto) Baso % (Auto) Neut # (Auto) Lymph # (Auto) Dale # (Auto) Eos # (Auto) Baso # (Auto) Sodium Potassium Chloride Carbon Dioxide Anion Gap BUN Creatinine Est GFR ( Amer) Est GFR (Non-Af Amer) POC Glucose (mg/dL) 172 H Random Glucose Calcium Total Bilirubin AST ALT Alkaline Phosphatase Troponin I 0.0160 Total Protein Albumin Globulin Albumin/Globulin Ratio Assessment & Plan (1) Bradycardia Assessment and Plan: tsh bnp stress test hold bb and clonidine Status: Acute (2) Diabetes mellitus Status: Chronic (3) ESRD on dialysis Status: Chronic (4) HTN (hypertension) Status: Chronic
[2018-02-02 05:31] LABS: BASO # 0.1 K/uL (0.0-0.2); BASO % 1.1 % (0.0-2.0); EOS # 0.1 K/uL (0.0-0.7); EOS % 1.7 % (0.0-4.0); HEMOGLOBIN 10.6 g/dL (12.0-16.0); LYMPH # 1.1 K/uL (1.0-4.3); LYMPH % 18.3 % (20.0-40.0); MEAN CELL VOLUME 88.7 fl (81.0-99.0); MEAN CORPUSCULAR HEMOGLOBIN 29.3 pg (27.0-31.0); MEAN PLATELET VOLUME 10.5 fl (7.2-11.7); MONO # 0.5 K/uL (0.0-0.8); MONO % 9.5 % (0.0-10.0); NEUT % 69.4 % (50.0-75.0); RBC 3.62 Mil/uL (3.80-5.20); WHITE BLOOD COUNT 5.8 K/uL (4.8-10.8)
[2018-02-02 06:01] LABS: CALCIUM 9.5 mg/dL (8.4-10.2)
[2018-02-02] MEDS: Insulin Lispro (humaLOG) 100 Units/ml Inj SC SCH ×4 (06:45→22:15)
--- NOTE | 2018-02-02 07:31 | CP.PCM.PN ---
<Clari Boland - Last Filed: 02/02/18 09:00> Subjective - Date & Time of Evaluation Date of Evaluation: 02/02/18 Time of Evaluation: 07:30 - Subjective Subjective: Patient seen and examined this morning with Dr Campbell, feeling well, denies CP, nausea or palpitations For stress test today Objective - Vital Signs/Intake and Output Vital Signs (last 24 hours): Temp Pulse Resp BP Pulse Ox 97.4 F L 60 18 182/65 H 97 02/02/18 04:49 02/02/18 05:40 02/02/18 04:49 02/02/18 05:40 02/02/18 04:49 - Medications Medications: Current Medications Aspirin (Aspirin Chewable) 81 mg PO DAILY [facility] Last Admin: 02/01/18 08:48 Dose: 81 mg Atorvastatin Calcium (Lipitor) 40 mg PO DAILY [facility] Last Admin: 02/01/18 08:55 Dose: 40 mg Carvedilol (Coreg) 6.25 mg PO Q12 [facility] Cinacalcet (Sensipar) 90 mg PO MWF [facility] Clonidine HCl (Catapres) 0.1 mg PO Q8 [facility] Heparin Sodium (Porcine) (Heparin) 5,000 units SC Q8 [facility]; Protocol Last Admin: 02/02/18 00:23 Dose: 5,000 units Hydralazine HCl (Apresoline) 25 mg PO TID [facility] Last Admin: 02/01/18 17:40 Dose: 25 mg Insulin Human Lispro (Humalog) 0 units SC ACHS [facility]; Protocol Last Admin: 02/02/18 06:45 Dose: Not Given Lisinopril (Zestril) 40 mg PO DAILY [facility] Nifedipine (Procardia Xl) 90 mg PO DAILY [facility] Last Admin: 02/01/18 08:55 Dose: 90 mg Pantoprazole Sodium (Protonix Ec Tab) 20 mg PO DAILY [facility] Last Admin: 02/01/18 12:31 Dose: 20 mg Sevelamer Carbonate (Renvela) 2,400 mg PO TID [facility] Last Admin: 02/01/18 17:42 Dose: 2,400 mg - Labs Labs: 02/02/18 04:25 02/02/18 04:25 - Constitutional Appears: No Acute Distress - Head Exam Head Exam: NORMAL INSPECTION - Respiratory Exam Respiratory Exam: Clear to Ausculation Bilateral - Cardiovascular Exam Cardiovascular Exam: Bradycardia, REGULAR RHYTHM - GI/Abdominal Exam GI & Abdominal Exam: Soft. absent: Distended, Tenderness - Extremities Exam Extremities Exam: absent: Calf Tenderness, Pedal Edema - Neurological Exam Neurological Exam: Alert, Awake, CN II-XII Intact, Oriented x3 - Skin Skin Exam: Dry, Warm Assessment and Plan - Assessment and Plan (Free Text) Assessment: 57 year old female with a past medical history of HTN, diabetes and chronic kidney disease on HD admitted due to symptomatic bradycardia. Plan: - no chest pain or palpitations or sob - labs reviewed BUN/Cr: 48/5.7 - nephro consulted, input appreciate continue HD MW - Cardiology consulted, input appreciated - for stress test today, f/u - BP meds adjusted - continue home meds - f/u labs in am - rest of plan as ordered <Hussain Campbell K - Last Filed: 02/03/18 08:14> Objective - Vital Signs/Intake and Output Vital Signs (last 24 hours): Temp Pulse Resp BP Pulse Ox 98.7 F 68 18 191/75 H 98 02/03/18 04:40 02/03/18 04:40 02/03/18 04:40 02/03/18 04:40 02/03/18 04:40 - Medications Medications: Current Medications Aspirin (Aspirin Chewable) 81 mg PO DAILY [facility] Last Admin: 02/02/18 10:19 Dose: Not Given Atorvastatin Calcium (Lipitor) 40 mg PO DAILY [facility] Last Admin: 02/02/18 10:19 Dose: Not Given Carvedilol (Coreg) 6.25 mg PO Q12 [facility] Cinacalcet (Sensipar) 90 mg PO [facility] Last Admin: 02/02/18 10:19 Dose: Not Given Epoetin Abraham (Procrit) 2,000 unit IV [facility] Last Admin: 02/02/18 15:56 Dose: 2,000 unit Heparin Sodium (Porcine) (Heparin) 5,000 units SC Q8 [facility]; Protocol Last Admin: 02/03/18 00:26 Dose: 5,000 units Hydralazine HCl (Apresoline) 50 mg PO TID [facility] Last Admin: 02/02/18 17:09 Dose: Not Given Insulin Human Lispro (Humalog) 0 units SC ACHS [facility]; Protocol Last Admin: 02/02/18 22:15 Dose: Not Given Losartan Potassium (Cozaar) 100 mg PO DAILY [facility] Last Admin: 02/02/18 16:43 Dose: 100 mg Nifedipine (Procardia Xl) 90 mg PO DAILY [facility] Last Admin: 02/02/18 12:06 Dose: 90 mg Pantoprazole Sodium (Protonix Ec Tab) 20 mg PO DAILY [facility] Last Admin: 02/02/18 10:18 Dose: Not Given Sevelamer Carbonate (Renvela) 2,400 mg PO TID [facility] Last Admin: 02/02/18 16:11 Dose: Not Given - Labs Labs: 02/02/18 04:25 02/02/18 04:25 Assessment and Plan - Assessment and Plan (Free Text) Assessment: Patient was personally seen and examined by me in rounds with residents. Available labs and diagnostic data reviewed. Case, Patient's condition and management plan discussed with residents in rounds. Agree with resident's progress note. Plan: As ordered.
--- NOTE | 2018-02-02 08:30 | CP.PCM.CON ---
History of Present Illness - History of Present Illness History of Present Illness: mik denny whole is 57 years of age female known with end stage renal disease on maintenance hemodialysis 3 times a week Monday. She presented to the emergency room because of bradycardia heart rate was in the range between 40-55patient was seen at the dialysis the day before yesterday and her heart rate was in the range but the patient was asymptomatic no dizziness no headache no complain no nausea no vomiting and the patient completed hemodialysis when higher heart rate was in the range of 55 by the end of that treatment. I reviewed the medication and we advised to come to the emergency room keep it in mind to decrease carvedilol from 12.5 mg to 6.25 mg twice a day No chest pain no shortness of breath no difficulty breathing no dysuria no nocturia. PMD: Dr Mai PMH: Bronchitis, COPD, Diabetes, HTN, End Stage Renal Disease, Chronic Kidney Disease Meds: as bellow PSH: denies FMH: DM and HTN Allergies: vancomycin SH: denies tobacco, etoh, ilicit drugs. Review of Systems - Constitutional Constitutional: Anorexia - EENT Eyes: Dry Eye, Irritation Nose/Mouth/Throat: absent: Nasal Congestion, Post Nasal Drip - Cardiovascular Cardiovascular: absent: Chest Pain, Dyspnea, Edema, Orthopnea - Respiratory Respiratory: absent: Cough - Gastrointestinal Gastrointestinal: absent: Coffee Ground Emesis, Cramping - Genitourinary Genitourinary: Nocturia - Musculoskeletal Musculoskeletal: Muscle Weakness - Neurological Neurological: absent: As Per HPI, Abnormal Gait, Abnormal Hearing, Abnormal Movements, Abnormal Speech, Behavioral Changes, Burning Sensations, Confusion, Convulsions, Disequilibrium, Dizziness, Numbness, Focal Weakness, Frequent Falls, Headaches, Lack of Coordination, Loss of Vision, Memory Loss, Paresthesias, Radicular Pain, Restless Legs, Sensory Deficit, Syncope, Tingling, Tremor, Vertigo, Weakness, Other Visual Disturbances, Other - Psychiatric Psychiatric: absent: Anxiety - Endocrine Endocrine: absent: Fatigue, Flushing - Hematologic/Lymphatic Hematologic: absent: Easy Bleeding Past Patient History - Past Medical History & Family History Past Medical History?: Yes - Past Social History Smoking Status: Never Smoked - CARDIAC Hx Cardiac Disorders: Yes Hx Hypercholesterolemia: Yes Hx Hypertension: Yes - PULMONARY Hx Respiratory Disorders: Yes Hx Bronchitis: Yes Hx Chronic Obstructive Pulmonary Disease (COPD): Yes - NEUROLOGICAL Hx Neurological Disorder: No - HEENT Hx HEENT Problems: No - RENAL Hx Chronic Kidney Disease: Yes Hx Dialysis: Yes Type of Dialysis Access: KARLA AV Fistula Date of Last Dialysis Treatment: 01/31/18 - ENDOCRINE/METABOLIC Hx Endocrine Disorders: Yes Hx Diabetes Mellitus Type 2: Yes - HEMATOLOGICAL/ONCOLOGICAL Hx Blood Disorders: No Hx Human Immunodeficiency Virus (HIV): No - INTEGUMENTARY Hx Dermatological Problems: No - MUSCULOSKELETAL/RHEUMATOLOGICAL Hx Musculoskeletal Disorders: No Hx Falls: No - GASTROINTESTINAL Hx Gastrointestinal Disorders: No - GENITOURINARY/GYNECOLOGICAL Hx Genitourinary Disorders: No - PSYCHIATRIC Hx Psychophysiologic Disorder: No Hx Substance Use: No - SURGICAL HISTORY Hx Surgeries: Yes Hx Vascular Surgery: Yes (Right and Left AV fistula placement) Other/Comment: Left great toe amputation (2002); Tubal ligation - ANESTHESIA Hx Anesthesia: Yes Hx Anesthesia Reactions: No Hx Malignant Hyperthermia: No Meds Allergies/Adverse Reactions: Allergies Allergy/AdvReac Type Severity Reaction Status Date / Time vancomycin Allergy ITCHING Verified 01/31/18 15:16 - Medications Medications: Current Medications Aspirin (Aspirin Chewable) 81 mg PO DAILY [facility] Last Admin: 02/01/18 08:48 Dose: 81 mg Atorvastatin Calcium (Lipitor) 40 mg PO DAILY [facility] Last Admin: 02/01/18 08:55 Dose: 40 mg Carvedilol (Coreg) 6.25 mg PO Q12 [facility] Cinacalcet (Sensipar) 90 mg PO MWF [facility] Clonidine HCl (Catapres) 0.1 mg PO Q8 [facility] Heparin Sodium (Porcine) (Heparin) 5,000 units SC Q8 [facility]; Protocol Last Admin: 02/02/18 00:23 Dose: 5,000 units Hydralazine HCl (Apresoline) 25 mg PO TID [facility] Last Admin: 02/02/18 08:27 Dose: Not Given Insulin Human Lispro (Humalog) 0 units SC ACHS [facility]; Protocol Last Admin: 02/02/18 06:45 Dose: Not Given Lisinopril (Zestril) 40 mg PO DAILY [facility] Nifedipine (Procardia Xl) 90 mg PO DAILY [facility] Last Admin: 02/01/18 08:55 Dose: 90 mg Pantoprazole Sodium (Protonix Ec Tab) 20 mg PO DAILY [facility] Last Admin: 02/01/18 12:31 Dose: 20 mg Sevelamer Carbonate (Renvela) 2,400 mg PO TID [facility] Last Admin: 02/01/18 17:42 Dose: 2,400 mg Physical Exam - Constitutional Appears: No Acute Distress - ENT Exam ENT Exam: Mucous Membranes Moist - Neck Exam Neck exam: Negative for: Lymphadenopathy - Respiratory Exam Respiratory Exam: absent: Chest Wall Tenderness, Wheezes, NORMAL BREATHING PATTERN - Cardiovascular Exam Cardiovascular Exam: REGULAR RHYTHM. absent: Gallop, JVD, Rubs - GI/Abdominal Exam GI & Abdominal Exam: absent: Guarding - Extremities Exam Extremities exam: Negative for: calf tenderness - Back Exam Back exam: absent: CVA tenderness (L), CVA tenderness (R) - Neurological Exam Neurological exam: Alert - Psychiatric Exam Psychiatric exam: Normal Affect Results - Vital Signs Recent Vital Signs: Last Vital Signs Temp 97.6 F 02/02/18 08:21 Pulse 67 02/02/18 08:22 Resp 18 02/02/18 08:21 BP 208/67 H 02/02/18 08:22 Pulse Ox 100 02/02/18 08:21 - Labs Result Diagrams: 02/02/18 04:25 02/02/18 04:25 Labs: Laboratory Results - last 24 hr 02/01/18 02/01/18 02/01/18 11:11 12:00 14:39 WBC RBC Hgb Hct MCV MCH MCHC RDW Plt Count MPV Neut % (Auto) Lymph % (Auto) Morrill % (Auto) Eos % (Auto) Baso % (Auto) Neut # (Auto) Lymph # (Auto) Morrill # (Auto) Eos # (Auto) Baso # (Auto) Sodium Potassium Chloride Carbon Dioxide Anion Gap BUN Creatinine Est GFR ( Amer) Est GFR (Non-Af Amer) POC Glucose (mg/dL) 172 H Random Glucose Calcium Total Bilirubin AST ALT Alkaline Phosphatase Troponin I 0.0160 NT-Pro-B Natriuret Pep 38572 H Total Protein Albumin Globulin Albumin/Globulin Ratio TSH 3rd Generation 0.81 02/01/18 02/01/18 02/01/18 15:41 19:00 21:19 WBC RBC Hgb Hct MCV MCH MCHC RDW Plt Count MPV Neut % (Auto) Lymph % (Auto) Morrill % (Auto) Eos % (Auto) Baso % (Auto) Neut # (Auto) Lymph # (Auto) Morrill # (Auto) Eos # (Auto) Baso # (Auto) Sodium Potassium Chloride Carbon Dioxide Anion Gap BUN Creatinine Est GFR ( Amer) Est GFR (Non-Af Amer) POC Glucose (mg/dL) 106 174 H Random Glucose Calcium Total Bilirubin AST ALT Alkaline Phosphatase Troponin I 0.0150 NT-Pro-B Natriuret Pep Total Protein Albumin Globulin Albumin/Globulin Ratio TSH 3rd Generation 02/02/18 02/02/18 02/02/18 04:25 04:25 05:08 WBC 5.8 RBC 3.62 L Hgb 10.6 L Hct 32.1 L MCV 88.7 MCH 29.3 MCHC 33.0 RDW 18.0 H Plt Count 116 L MPV 10.5 Neut % (Auto) 69.4 Lymph % (Auto) 18.3 L Morrill % (Auto) 9.5 Eos % (Auto) 1.7 Baso % (Auto) 1.1 Neut # (Auto) 4.0 Lymph # (Auto) 1.1 Morrill # (Auto) 0.5 Eos # (Auto) 0.1 Baso # (Auto) 0.1 Sodium 137 Potassium 4.9 Chloride 95 L Carbon Dioxide 27 Anion Gap 20 BUN 48 H Creatinine 5.7 H Est GFR ( Amer) 9 Est GFR (Non-Af Amer) 8 POC Glucose (mg/dL) 173 H Random Glucose 167 H Calcium 9.5 Total Bilirubin 0.4 AST 17 ALT 23 Alkaline Phosphatase 115 Troponin I NT-Pro-B Natriuret Pep Total Protein 8.0 Albumin 4.0 Globulin 4.1 H Albumin/Globulin Ratio 1.0 TSH 3rd Generation Assessment & Plan (1) Chronic kidney disease with end stage renal failure on dialysis Assessment and Plan: patient with end stage renal disease on maintenance hemodialysis Monday admitted because of bradycardia etiology to be determined possibly from beta amber such as carvedilol although cardiology on the case and patient is going for further testing. Hypertension patient has very difficult the high blood pressure and she required multiple antihypertensive medication Hyperphosphatemia Secondary hyperparathyroidism Anemia Plan Continue hemodialysis Monday consent was taken order was given Workup for the bradycardia by the cardiology patient is going to have echocardiogram and stress test among other things Continue on antihypertensive medication Carvedilol decrease from 12.5 to 6.25 mg twice a day continue Sensipar Continue phosphorus binder continue diabetic medication need better glycemic control to check hemoglobin A1c Continue EPO on the dialysis for the anemia Status: Acute (2) DM2 (diabetes mellitus, type 2) Status: Chronic (3) HTN (hypertension) Status: Chronic
[2018-02-02] MEDS: Pantoprazole 20 mg EC Tab PO SCH (10:18)
[2018-02-02] MEDS: NIFEdipine 90 mg ER Tab PO SCH ×2 (10:20→12:06)
--- NOTE | 2018-02-02 10:51 | CP.PCM.PCO ---
Assessment/Plan - Assessment/Plan Assessment (Free Text): Patient seen and examined this morning prior to stress test. Denies chest pain, shortness of breath nausea or vomiting. BP 208/85, HR 70 despite being given PO hydralazine and PO clonidine. Patient given IV hydralazine x1 this morning prior to stress test with Dr Burton. Patient admitted for full admission for blood pressure control and further cardiac testing. Will continue to monitor. - Problems Patient Problems: Problem List (Active/Current) Problem Status Onset Code Bradycardia Acute R00.1
--- NOTE | 2018-02-02 11:28 | CARD ---
APPROVED REPORT Date of service: 02/01/2018 EXAM: Two-dimensional and M-mode echocardiogram with Doppler and color Doppler. Other Information Quality : GoodRhythm : NSR INDICATION Abnormal EKG/Arrhythmia Bradycardia 2D DIMENSIONS IVSd1.65 (0.7-1.1cm)LVDd5.55 (3.9-5.9cm) LVOT Diameter1.93 (1.8-2.4cm)PWd1.60 (0.7-1.1cm) IVSs2.17 (0.8-1.2cm)LVDs4.05 (2.5-4.0cm) FS (%) 27.1 %PWs2.09 (0.8-1.2cm) M-Mode DIMENSIONS Left Atrium (MM)5.81 (2.5-4.0cm)IVSd1.63 (0.7-1.1cm) Aortic Root3.06 (2.2-3.7cm)LVDd6.38 (4.0-5.6cm) Aortic Cusp Exc.2.13 (1.5-2.0cm)PWd1.38 (0.7-1.1cm) IVSs1.91 cmFS (%) 37 % LVDs4.00 (2.0-3.8cm)PWs1.97 cm Aortic Valve AoV Peak Nujltkbn627.4cm/sAoV VTI43.9cmAO Peak GR.18mmHg LVOT Peak Hueipezo469.2cm/sLVOT VTI29.86cmAO Mean GR.9mmHg JAZZY (VMAX)1.10je0GNX (VTI)1.10cm2 Mitral Valve MV E Cltkguzn966.5cm/sMV DECEL NXGN001smSU A Iugjxsmn95.0cm/s MV LXS14inP/A ratio1.4MVA (PHT)3.27cm2 TDI Lateral E' Peak V8.31cm/sMedial E' Peak V5.95cm/sE/Lateral E'14.4 E/Medial E'20.1 Pulmonary Valve PV Peak Pmwgmqix816.8cm/s Tricuspid Valve TR Peak Blwumjny193di/sRAP ESGUOLTQ18dxDvKO Peak Gr.39mmHg MWJU09qdJa LEFT VENTRICLE The left ventricle is normal size. There is mild to moderate concentric left ventricular hypertrophy. The left ventricular systolic function is normal. The estimated ejection fraction is 55-60% No regional wall motion abnormalities noted.. Transmitral Doppler flow pattern is Grade II-pseudonormal filling dynamics. No left ventricle thrombus noted on this study. There is no ventricular septal defect visualized. There is no left ventricular aneurysm. There is no mass noted in the left ventricle. RIGHT VENTRICLE The right ventricle is normal size. There is normal right ventricular wall thickness. The right ventricular systolic function is normal. ATRIA The left atrium is moderate to severely dilated. The right atrium size is normal. The interatrial septum is intact with no evidence for an atrial septal defect. AORTIC VALVE The aortic valve is normal in structure. No aortic regurgitation is present. There is no aortic valvular stenosis. There is no aortic valvular vegetation. MITRAL VALVE The mitral valve is normal in structure. There is no evidence of mitral valve prolapse. There is no mitral valve stenosis. There is mild to moderate mitral valve regurgitation noted. TRICUSPID VALVE The tricuspid valve is normal in structure. There is moderate to severe tricuspid valve regurgitation noted. RVSP is calculated at 52 mm Hg, consistent with mild to moderate pulmonary HTN. There is no tricuspid valve prolapse or vegetation. There is no tricuspid valve stenosis. PULMONIC VALVE The pulmonary valve is normal in structure. There is trace pulmonic valvular regurgitation. There is no pulmonic valvular stenosis. GREAT VESSELS The aortic root is normal in size. The ascending aorta is normal in size. The pulmonary artery is normal. The IVC is normal in size and collapses >50% with inspiration. PERICARDIAL EFFUSION There is no pericardial effusion. There is no pleural effusion. <Conclusion> There is mild to moderate concentric left ventricular hypertrophy. The estimated ejection fraction is 55-60% Transmitral Doppler flow pattern is Grade II-pseudonormal filling dynamics. The left atrium is moderate to severely dilated. There is mild to moderate mitral valve regurgitation noted. There is moderate to severe tricuspid valve regurgitation noted. RVSP is calculated at 52 mm Hg, consistent with mild to moderate pulmonary HTN.
[2018-02-02] MEDS: Epoetin Alfa 20000 UNIT/ML (RENAL DOSE) IV SCH (15:56)
--- NOTE | 2018-02-02 20:01 | CP.PCM.PN ---
Subjective - Date & Time of Evaluation Date of Evaluation: 02/02/18 Time of Evaluation: 20:00 - Subjective Subjective: HR stable off clonidine s/p stress test Objective - Vital Signs/Intake and Output Vital Signs (last 24 hours): Temp Pulse Resp BP Pulse Ox 98.6 F 64 20 206/87 H 99 02/02/18 15:26 02/02/18 16:43 02/02/18 15:26 02/02/18 16:43 02/02/18 15:26 - Medications Medications: Current Medications Aspirin (Aspirin Chewable) 81 mg PO DAILY [facility] Last Admin: 02/02/18 10:19 Dose: Not Given Atorvastatin Calcium (Lipitor) 40 mg PO DAILY [facility] Last Admin: 02/02/18 10:19 Dose: Not Given Carvedilol (Coreg) 6.25 mg PO Q12 [facility] Cinacalcet (Sensipar) 90 mg PO MWF [facility] Last Admin: 02/02/18 10:19 Dose: Not Given Epoetin Abraham (Procrit) 2,000 unit IV MWF [facility] Last Admin: 02/02/18 15:56 Dose: 2,000 unit Heparin Sodium (Porcine) (Heparin) 5,000 units SC Q8 [facility]; Protocol Last Admin: 02/02/18 16:11 Dose: 5,000 units Hydralazine HCl (Apresoline) 50 mg PO TID [facility] Last Admin: 02/02/18 17:09 Dose: Not Given Insulin Human Lispro (Humalog) 0 units SC ACHS [facility]; Protocol Last Admin: 02/02/18 16:10 Dose: 1 unit Losartan Potassium (Cozaar) 100 mg PO DAILY [facility] Last Admin: 02/02/18 16:43 Dose: 100 mg Nifedipine (Procardia Xl) 90 mg PO DAILY [facility] Last Admin: 02/02/18 12:06 Dose: 90 mg Pantoprazole Sodium (Protonix Ec Tab) 20 mg PO DAILY [facility] Last Admin: 02/02/18 10:18 Dose: Not Given Sevelamer Carbonate (Renvela) 2,400 mg PO TID [facility] Last Admin: 02/02/18 16:11 Dose: Not Given - Labs Labs: 02/02/18 04:25 02/02/18 04:25 - Constitutional Appears: Well - Head Exam Head Exam: ATRAUMATIC, NORMAL INSPECTION, NORMOCEPHALIC - Eye Exam Eye Exam: EOMI, Normal appearance, PERRL Pupil Exam: NORMAL ACCOMODATION, PERRL - ENT Exam ENT Exam: Mucous Membranes Moist, Normal Exam - Neck Exam Neck Exam: Full ROM, Normal Inspection. absent: Lymphadenopathy - Respiratory Exam Respiratory Exam: Clear to Ausculation Bilateral, NORMAL BREATHING PATTERN - Cardiovascular Exam Cardiovascular Exam: REGULAR RHYTHM, +S1, +S2. absent: Murmur - GI/Abdominal Exam GI & Abdominal Exam: Soft, Normal Bowel Sounds. absent: Tenderness - Extremities Exam Extremities Exam: Full ROM, Normal Capillary Refill, Normal Inspection. absent: Joint Swelling, Pedal Edema - Back Exam Back Exam: NORMAL INSPECTION - Neurological Exam Neurological Exam: Alert, Awake, CN II-XII Intact, Normal Gait, Oriented x3 - Psychiatric Exam Psychiatric exam: Normal Affect, Normal Mood - Skin Skin Exam: Dry, Intact, Normal Color, Warm Assessment and Plan (1) Bradycardia Status: Acute (2) Diabetes mellitus Status: Chronic (3) ESRD on dialysis Status: Chronic (4) HTN (hypertension) Status: Chronic
[2018-02-03] MEDS ORDERED: Labetalol 5 mg/ml Inj 20ML IVP STA (00:12)
[2018-02-03] MEDS: NIFEdipine 90 mg ER Tab PO SCH (08:25)
[2018-02-03] MEDS: Insulin Lispro (humaLOG) 100 Units/ml Inj SC SCH ×4 (08:25→21:26)
[2018-02-03] MEDS: Pantoprazole 20 mg EC Tab PO SCH (08:26)
--- NOTE | 2018-02-03 09:33 | PN ---
DATE: 02/03/2018 SUBJECTIVE: The patient is seen and examined. Interim events noted. Consults noted and appreciated. The patient remains in progressive care unit on telemetry monitoring, status post stress test yesterday. Results are pending. The patient denies any chest pain or shortness of breath. No specific issue reported by nursing staff other than an increased blood pressure. PHYSICAL EXAMINATION: GENERAL: The patient is in no acute distress. VITAL SIGNS: Stable except blood pressure remains persistently high. HEART: S1, S2 normal and regular. LUNGS: Good bilateral air exchange. ABDOMEN: Soft, nontender. EXTREMITIES: No edema, no calf swelling, no tenderness, no acute ischemia. CENTRAL NERVOUS SYSTEM: Essentially unchanged. DIAGNOSTIC DATA: Available diagnostic data reviewed. Telemetry monitoring does not show significant arrhythmias. ASSESSMENT AND PLAN: Overall, the patient's general medical condition is stable, although blood pressure remains elevated. Plan as ordered. Hussain Campbell MD
--- NOTE | 2018-02-03 14:49 | CP.PCM.PN ---
Subjective - Date & Time of Evaluation Date of Evaluation: 02/03/18 Time of Evaluation: 14:46 - Subjective Subjective: RENAL: seen and examined no events o/n Objective - Vital Signs/Intake and Output Vital Signs (last 24 hours): Temp Pulse Resp BP Pulse Ox 98.4 F 74 20 206/81 H 100 02/03/18 12:00 02/03/18 13:37 02/03/18 12:00 02/03/18 13:37 02/03/18 13:01 - Medications Medications: Current Medications Acetaminophen (Tylenol 325mg Tab) 650 mg PO Q6 PRN PRN Reason: pain 4-6 Last Admin: 02/03/18 11:19 Dose: 650 mg Aspirin (Aspirin Chewable) 81 mg PO DAILY [facility] Last Admin: 02/03/18 08:26 Dose: 81 mg Atorvastatin Calcium (Lipitor) 40 mg PO DAILY [facility] Last Admin: 02/03/18 08:25 Dose: 40 mg Carvedilol (Coreg) 6.25 mg PO Q12 [facility] Cinacalcet (Sensipar) 90 mg PO MWF [facility] Last Admin: 02/02/18 10:19 Dose: Not Given Epoetin Abraham (Procrit) 2,000 unit IV MWF [facility] Last Admin: 02/02/18 15:56 Dose: 2,000 unit Heparin Sodium (Porcine) (Heparin) 5,000 units SC Q8 [facility]; Protocol Last Admin: 02/03/18 08:26 Dose: 5,000 units Hydralazine HCl (Apresoline) 50 mg PO TID [facility] Last Admin: 02/03/18 13:37 Dose: 50 mg Insulin Human Lispro (Humalog) 0 units SC ACHS [facility]; Protocol Last Admin: 02/03/18 13:41 Dose: 1 unit Losartan Potassium (Cozaar) 100 mg PO DAILY [facility] Last Admin: 02/03/18 08:24 Dose: 100 mg Nifedipine (Procardia Xl) 90 mg PO DAILY [facility] Last Admin: 02/03/18 08:25 Dose: 90 mg Pantoprazole Sodium (Protonix Ec Tab) 20 mg PO DAILY [facility] Last Admin: 02/03/18 08:26 Dose: 20 mg Sevelamer Carbonate (Renvela) 2,400 mg PO TID [facility] Last Admin: 02/03/18 13:41 Dose: Not Given - Labs Labs: 02/02/18 04:25 02/02/18 04:25 - Constitutional Appears: Well - Head Exam Head Exam: ATRAUMATIC - Eye Exam Pupil Exam: PERRL - ENT Exam ENT Exam: Mucous Membranes Moist, Normal Exam - Respiratory Exam Respiratory Exam: Clear to Ausculation Bilateral - Cardiovascular Exam Cardiovascular Exam: +S1, +S2 - GI/Abdominal Exam GI & Abdominal Exam: Soft, Normal Bowel Sounds - Extremities Exam Extremities Exam: Normal Inspection - Neurological Exam Neurological Exam: Alert, Oriented x3 - Psychiatric Exam Psychiatric exam: Normal Affect - Skin Skin Exam: Normal Color Assessment and Plan (1) Bradycardia Status: Acute (2) Chronic congestive heart failure Status: Acute (3) Chronic kidney disease with end stage renal failure on dialysis Status: Acute - Assessment and Plan (Free Text) Plan: ESRD/Anemia of renal disease/ Secondary hyperpara/ Bradycardia/ Hypertension plan: HD MWF epo w/ hd continue sensipar f/u cardiology recc inc hydral to 100 tid
[2018-02-04 07:53] LABS: HEMOGLOBIN 10.2 g/dL (12.0-16.0); MEAN CELL VOLUME 88.7 fl (81.0-99.0); MEAN CORPUSCULAR HEMOGLOBIN 29.6 pg (27.0-31.0); MEAN CORPUSCULAR HGB CONC 33.4 g/dL (33.0-37.0); RBC 3.44 Mil/uL (3.80-5.20); RED CELL DISTRIBUTION WIDTH 19.3 % (11.5-14.5); WHITE BLOOD COUNT 5.3 K/uL (4.8-10.8)
[2018-02-04 08:41] LABS: ALBUMIN 3.8 g/dL (3.5-5.0); CALCIUM 9.6 mg/dL (8.4-10.2)
--- NOTE | 2018-02-04 09:15 | PN ---
DATE: 02/04/2018 SUBJECTIVE: The patient is seen and examined. Interim events noted. Consults noted and appreciated. Patient still remains hypertensive, and telephone orders were given. The patient feels okay. Denies any chest pain or shortness of breath. The patient has cough, but no sore throat. Abdomen is soft. No specific issue reported by nursing staff other than elevated blood pressure. PHYSICAL EXAMINATION: GENERAL: The patient is in no acute distress. VITAL SIGNS: Stable, although blood pressure is elevated. ABDOMEN: Soft, nontender. No organomegaly. No fluid. Bowel sounds are plus and normal. HEART: S1, S2 normal. Regular. LUNGS: Good bilateral air exchange. EXTREMITIES: No edema. No calf swelling. No tenderness. No acute ischemia. CENTRAL NERVOUS SYSTEM: Essentially unchanged. DIAGNOSTIC DATA: Available diagnostic data reviewed. Telemetry monitoring does not show significant arrhythmias. Overall, the patient's general medical condition is stable. Blood pressure remains elevated. Plan as ordered. Hussain Campbell MD
[2018-02-04] MEDS: Pantoprazole 20 mg EC Tab PO SCH (09:16)
[2018-02-04] MEDS: NIFEdipine 90 mg ER Tab PO SCH (09:16)
[2018-02-04] MEDS: Insulin Lispro (humaLOG) 100 Units/ml Inj SC SCH ×2 (12:27→16:38)
--- NOTE | 2018-02-04 12:57 | CP.PCM.PN ---
Subjective - Date & Time of Evaluation Date of Evaluation: 02/04/18 Time of Evaluation: 12:55 - Subjective Subjective: RENAL s: seen and examined feels good pe: vss gen: nad sclera: anicteric op: clear neck: supple no thyromegaly lungs cta abd: soft nt nd no organomegaly ext: no edema cv: +S1+s2 neuro: a+ox3 no defecit psych: nml affect skin: no rash A/P; ESRD/Anemia of renal disease/ Secondary hyperpara/ Bradycardia/ Hypertension plan: HD MWF epo w/ hd continue sensipar f/u cardiology re: stress test hydral increased to 100 tid Objective - Vital Signs/Intake and Output Vital Signs (last 24 hours): Temp Pulse Resp BP Pulse Ox 98.8 F 74 18 168/64 H 93 L 02/04/18 12:24 02/04/18 12:26 02/04/18 12:24 02/04/18 12:26 02/04/18 12:24 - Medications Medications: Current Medications Acetaminophen (Tylenol 325mg Tab) 650 mg PO Q6 PRN PRN Reason: pain 4-6 Last Admin: 02/03/18 16:51 Dose: 650 mg Aspirin (Aspirin Chewable) 81 mg PO DAILY [facility] Last Admin: 02/04/18 09:15 Dose: 81 mg Atorvastatin Calcium (Lipitor) 40 mg PO DAILY [facility] Last Admin: 02/04/18 09:16 Dose: 40 mg Carvedilol (Coreg) 6.25 mg PO Q12 [facility] Cinacalcet (Sensipar) 90 mg PO [facility] [place] Last Admin: 02/02/18 10:19 Dose: Not Given Epoetin Abraham (Procrit) 2,000 unit IV [facility] [place] Last Admin: 02/02/18 15:56 Dose: 2,000 unit Heparin Sodium (Porcine) (Heparin) 5,000 units SC Q8 [facility]; Protocol Last Admin: 02/04/18 09:15 Dose: 5,000 units Hydralazine HCl (Apresoline) 100 mg PO TID [facility] Last Admin: 02/04/18 12:26 Dose: 100 mg Insulin Human Lispro (Humalog) 0 units SC ACHS [facility]; Protocol Last Admin: 02/04/18 12:27 Dose: Not Given Labetalol HCl (Trandate) 100 mg PO BID [facility] Last Admin: 02/04/18 09:18 Dose: 100 mg Losartan Potassium (Cozaar) 100 mg PO DAILY [facility] Last Admin: 02/04/18 09:15 Dose: 100 mg Nifedipine (Procardia Xl) 90 mg PO DAILY [facility] Last Admin: 02/04/18 09:16 Dose: 90 mg Pantoprazole Sodium (Protonix Ec Tab) 20 mg PO DAILY [facility] Last Admin: 02/04/18 09:16 Dose: 20 mg Sevelamer Carbonate (Renvela) 2,400 mg PO TID [facility] Last Admin: 02/04/18 12:30 Dose: 2,400 mg - Labs Labs: 02/04/18 06:00 02/04/18 06:00 Assessment and Plan (1) Bradycardia Status: Acute (2) Chronic congestive heart failure Status: Acute (3) Chronic kidney disease with end stage renal failure on dialysis Status: Acute
[2018-02-05] MEDS: Insulin Lispro (humaLOG) 100 Units/ml Inj SC SCH ×5 (00:30→21:40)
[2018-02-05] MEDS ORDERED: guaiFENesin DM 100 mg-10 mg/5 ml UD PO PRN (06:55)
--- NOTE | 2018-02-05 11:47 | PN ---
DATE: 02/05/2018 SUBJECTIVE: The patient seen and examined. Interim events noted. Consults noted and appreciated. The patient remains in progressive care unit on telemetry monitoring. Feels okay. Denies any chest pain or shortness of breath. Complains of cough and stomach upset. No difficulty breathing. PHYSICAL EXAMINATION: GENERAL: The patient is in no acute distress. VITAL SIGNS: Stable. HEART: S1 and S2 normal and regular. Lungs: Good bilateral air exchange. ABDOMEN: Soft, nontender. EXTREMITIES: No edema, calf swelling. No tenderness. No acute ischemia. 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 DIAGNOSTIC DATA: Available diagnostic data reviewed. Telemetry monitoring does not reveal significant arrhythmia, specifically no bradycardia. ASSESSMENT AND PLAN: Overall, the patient is clinically stable. Plan as ordered. Hussain Campbell MD
[2018-02-05] MEDS: Epoetin Alfa 20000 UNIT/ML (RENAL DOSE) IV SCH (14:30)
[2018-02-05] MEDS: Pantoprazole 20 mg EC Tab PO SCH (14:30)
[2018-02-05] MEDS: NIFEdipine 90 mg ER Tab PO SCH (14:32)
--- NOTE | 2018-02-05 14:46 | CP.PCM.PN ---
Subjective - Date & Time of Evaluation Date of Evaluation: 02/05/18 Time of Evaluation: 14:45 - Subjective Subjective: RENAL Follow Up s: seen and examined feels good. c/o heartburn. no CP/SOB pe:seen during HD vss gen: nad sclera: anicteric op: clear neck: supple no thyromegaly lungs cta abd: soft nt nd no organomegaly ext: no edema cv: +S1+s2 neuro: a+ox3 no defecit psych: nml affect skin: no rash A/P; ESRD/Anemia of renal disease/ Secondary hyperpara/ Bradycardia/ Hypertension plan: HD today as MWF epo w/ hd as ordered continue sensipar f/u cardiology hydral increased to 100 tid. pt on multiple BP meds including RAAS amber Objective - Vital Signs/Intake and Output Vital Signs (last 24 hours): Temp Pulse Resp BP Pulse Ox 98 F 87 18 190/82 H 99 02/05/18 12:20 02/05/18 12:32 02/05/18 12:20 02/05/18 12:32 02/05/18 12:20 - Medications Medications: Current Medications Acetaminophen (Tylenol 325mg Tab) 650 mg PO Q6 PRN PRN Reason: pain 4-6 Last Admin: 02/05/18 00:32 Dose: 650 mg Aspirin (Aspirin Chewable) 81 mg PO DAILY [facility] Last Admin: 02/05/18 14:33 Dose: 81 mg Atorvastatin Calcium (Lipitor) 40 mg PO DAILY [facility] Last Admin: 02/05/18 14:32 Dose: 40 mg Carvedilol (Coreg) 6.25 mg PO Q12 [facility] Cinacalcet (Sensipar) 90 mg PO [facility] [place] Last Admin: 02/05/18 14:34 Dose: 90 mg Epoetin Abraham (Procrit) 2,000 unit IV [facility] [place] Last Admin: 02/05/18 14:30 Dose: 2,000 unit Guaifenesin/Dextromethorphan (Robitussin Dm) 5 ml PO Q4 PRN PRN Reason: Cough Hydralazine HCl (Apresoline) 100 mg PO TID [facility] Last Admin: 02/05/18 12:32 Dose: 100 mg Insulin Human Lispro (Humalog) 0 units SC [facility]; Protocol Last Admin: 02/05/18 12:33 Dose: Not Given Labetalol HCl (Trandate) 100 mg PO BID [facility] Last Admin: 02/05/18 09:15 Dose: Not Given Losartan Potassium (Cozaar) 100 mg PO DAILY [facility] Last Admin: 02/04/18 09:15 Dose: 100 mg Nifedipine (Procardia Xl) 90 mg PO DAILY [facility] Last Admin: 02/05/18 14:32 Dose: 90 mg Pantoprazole Sodium (Protonix Ec Tab) 20 mg PO DAILY [facility] Last Admin: 02/05/18 14:30 Dose: 20 mg Pantoprazole Sodium (Protonix Ec Tab) 40 mg PO DAILY [facility] Sevelamer Carbonate (Renvela) 2,400 mg PO TID [facility] Last Admin: 02/05/18 12:34 Dose: Not Given Vitamin B Complex/Vit C/Folic Acid (Nephro-Tao) 1 tab PO DAILY [facility] - Labs Labs: 02/04/18 06:00 02/04/18 06:00
[2018-02-05] MEDS: Pantoprazole 40 mg EC Tab PO SCH (15:23)
[2018-02-05 17:42] LABS: HEMOGLOBIN 10.4 g/dL (12.0-16.0); MEAN CELL VOLUME 88.7 fl (81.0-99.0); MEAN CORPUSCULAR HEMOGLOBIN 29.6 pg (27.0-31.0); MEAN CORPUSCULAR HGB CONC 33.4 g/dL (33.0-37.0); RBC 3.51 Mil/uL (3.80-5.20); WHITE BLOOD COUNT 6.2 K/uL (4.8-10.8)
--- NOTE | 2018-02-05 17:56 | CARD ---
APPROVED REPORT Date of service: 02/02/2018 Protocol: LEXISCAN Test Type: STRESS NUCLEAR Medications: [id number], ASA 81MG, ATORVASTATIN 40MG, LISINOPORIL 20MG, NIFEDIPING 90MG, CINACALCET 90MG, SEVELAMER 2, 400MG. Medical History: BRONCHITIS, COPD, DIABETIC, HTN, END STAGE RENAL DISEASE, CHRONIC KIDNEY DISEASE. Target HR: 162 bpm Resting ECG: normal Resting Heart Rate: 70 bpm Resting Blood Pressure: 220/98mmHg submaximum (85%): 138 bpm TEST SUMMARY [id number]. INJECTIONNS FLUSH00:[id number]. INJECTIONNUC MED00:[id number]. [id number]. PROCEDURE Pharmacologic stress testing was performed using 0.4mg per 5ml of regadenoson given intravenously over 7-10 seconds. POST EXERCISE Reason for Termination: protocol completed Target HR: No Max HR: 65 bpm 45% of Maximum Predicted HR: 162 bpm Exercise duration: 01:00 min:sec, 0 Stage Exercise capacity: 1.0METs Max Blood Pressure: 227/86mmHg Blood Pressure response to exercise: normal resting BP - appropriate response Heart Rate response to exercise: appropriate Chest Pain: No, none Angina index: 0 Arrhythmia: No, none ST Change: No, none Deviation: 0 mm EXAM: Myocardial Perfusion REST/STRESS Image QualityGood Imaging Protocol The imaging protocol used to acquire images was Rest Tc-99m/stress Tc-99m 2 days Rest Spect myocardial perfusion imaging was performed in supine position 35 minutes following the injection of 10 mCi of Tc-99 Myoview. Time of rest injection: 7:46 Time of rest imagin:25 At peak stress, the patient was injected intravenously with 30mCi of Tc-99 tetrofosmin after an infusion time of minutes and seconds. Time of stress injection: 9:42 Time of stress imagin:30 Gated Stress Spect was performed 132 minutes after intravenous Tc-99 Myoview injection. The images were gated to evaluate regional wall motion and calculate ventricular ejection fraction. NUCLEAR IMAGE INTERPRETATION Study quality was poor. Left Ventricular size was Normal at Rest and Stress. Lung uptake was Normal. Left Ventricular ejection fraction is 55%. LV Perfusion 1 Perfusion Defect Location: mid anteroseptal Perfusion Defect Size: Small (1-2 segments) Perfusion Defect Severity: Mild Type of Perfusion Defect: Reversible TCD/TID: Yes CONCLUSION 1. - Small sized mild intensity reversible anteroseptal defect 2. - Normal LVEF 3. - TID 1.27 significant Recommendation - Consider further evaluation with cardiac catheterization
--- NOTE | 2018-02-05 18:05 | CP.PCM.PN ---
Subjective - Date & Time of Evaluation Date of Evaluation: 02/05/18 Time of Evaluation: 18:01 - Subjective Subjective: s/p stress test showing anteroseptal defect with TID c/o heart burn HR stable off clonidine Objective - Vital Signs/Intake and Output Vital Signs (last 24 hours): Temp Pulse Resp BP Pulse Ox 98.5 F 88 16 188/72 H 98 02/05/18 16:38 02/05/18 16:38 02/05/18 16:38 02/05/18 16:38 02/05/18 16:38 - Medications Medications: Current Medications Acetaminophen (Tylenol 325mg Tab) 650 mg PO Q6 PRN PRN Reason: pain 4-6 Last Admin: 02/05/18 15:20 Dose: 650 mg Aspirin (Aspirin Chewable) 81 mg PO DAILY [facility] Last Admin: 02/05/18 14:33 Dose: 81 mg Atorvastatin Calcium (Lipitor) 40 mg PO DAILY [facility] Last Admin: 02/05/18 14:32 Dose: 40 mg Carvedilol (Coreg) 6.25 mg PO Q12 [facility] Cinacalcet (Sensipar) 90 mg PO MWF [facility] Last Admin: 02/05/18 14:34 Dose: 90 mg Epoetin Abraham (Procrit) 2,000 [place] IV [facility] [place] Last Admin: 02/05/18 14:30 Dose: 2,000 unit Guaifenesin/Dextromethorphan (Robitussin Dm) 5 ml PO Q4 PRN PRN Reason: Cough Hydralazine HCl (Apresoline) 100 mg PO TID [facility] Last Admin: 02/05/18 12:32 Dose: 100 mg Insulin Human Lispro (Humalog) 0 units SC [facility]; Protocol Last Admin: 02/05/18 12:33 Dose: Not Given Labetalol HCl (Trandate) 100 mg PO BID [facility] Last Admin: 02/05/18 09:15 Dose: Not Given Losartan Potassium (Cozaar) 100 mg PO DAILY [facility] Last Admin: 02/05/18 15:52 Dose: 100 mg Nifedipine (Procardia Xl) 90 mg PO DAILY [facility] Last Admin: 02/05/18 14:32 Dose: 90 mg Pantoprazole Sodium (Protonix Ec Tab) 40 mg PO DAILY [facility] Last Admin: 02/05/18 15:23 Dose: 40 mg Sevelamer Carbonate (Renvela) 2,400 mg PO TID [facility] Last Admin: 02/05/18 12:34 Dose: Not Given Vitamin B Complex/Vit C/Folic Acid (Nephro-Tao) 1 tab PO DAILY [facility] - Labs Labs: 02/05/18 16:50 02/04/18 06:00 - Constitutional Appears: Well - Head Exam Head Exam: ATRAUMATIC, NORMAL INSPECTION, NORMOCEPHALIC - Eye Exam Eye Exam: EOMI, Normal appearance, PERRL Pupil Exam: NORMAL ACCOMODATION, PERRL - ENT Exam ENT Exam: Mucous Membranes Moist, Normal Exam - Neck Exam Neck Exam: Full ROM, Normal Inspection. absent: Lymphadenopathy - Respiratory Exam Respiratory Exam: Clear to Ausculation Bilateral, NORMAL BREATHING PATTERN - Cardiovascular Exam Cardiovascular Exam: REGULAR RHYTHM, +S1, +S2. absent: Murmur - GI/Abdominal Exam GI & Abdominal Exam: Soft, Normal Bowel Sounds. absent: Tenderness - Extremities Exam Extremities Exam: Full ROM, Normal Capillary Refill, Normal Inspection. absent: Joint Swelling, Pedal Edema - Back Exam Back Exam: NORMAL INSPECTION - Neurological Exam Neurological Exam: Alert, Awake, CN II-XII Intact, Normal Gait, Oriented x3 - Psychiatric Exam Psychiatric exam: Normal Affect, Normal Mood - Skin Skin Exam: Dry, Intact, Normal Color, Warm Assessment and Plan (1) HTN (hypertension) Assessment & Plan: meds adjusted coreg , hydralazine, losartan and norvasc monitor BP Status: Chronic (2) Bradycardia Assessment & Plan: HR stable off clonidine dc ccb stress test abnormal - will need to setup for cardiac cath Status: Acute (3) Diabetes mellitus Status: Chronic (4) ESRD on dialysis Status: Chronic
[2018-02-05 18:15] LABS: CALCIUM 9.4 mg/dL (8.4-10.2)
[2018-02-06 00:18] VITALS: RESP 18
[2018-02-06 05:57] LABS: ALBUMIN 3.6 g/dL (3.5-5.0); CALCIUM 8.8 mg/dL (8.4-10.2)
[2018-02-06 06:07] LABS: MEAN CELL VOLUME 89.2 fl (81.0-99.0); MEAN CORPUSCULAR HEMOGLOBIN 29.9 pg (27.0-31.0); MEAN CORPUSCULAR HGB CONC 33.5 g/dL (33.0-37.0); RBC 3.36 Mil/uL (3.80-5.20); RED CELL DISTRIBUTION WIDTH 19.2 % (11.5-14.5); WHITE BLOOD COUNT 5.8 K/uL (4.8-10.8)
[2018-02-06] MEDS: Insulin Lispro (humaLOG) 100 Units/ml Inj SC SCH ×2 (06:57→13:03)
--- NOTE | 2018-02-06 07:39 | CP.PCM.PN ---
Subjective - Date & Time of Evaluation Date of Evaluation: 02/06/18 Time of Evaluation: 07:39 - Subjective Subjective: Patient seen and examined this morning with Dr Campbell, lying comfortable on bed, no overnight events, feeling well, denies CP, nausea or palpitations, no complaints. Objective - Vital Signs/Intake and Output Vital Signs (last 24 hours): Temp Pulse Resp BP Pulse Ox 98.4 F 68 18 163/68 H 95 02/06/18 05:04 02/06/18 05:04 02/06/18 05:04 02/06/18 06:30 02/06/18 05:04 - Medications Medications: Current Medications Acetaminophen (Tylenol 325mg Tab) 650 mg PO Q6 PRN PRN Reason: pain 4-6 Last Admin: 02/05/18 15:20 Dose: 650 mg Amlodipine Besylate (Norvasc) 10 mg PO DAILY [facility] Aspirin (Aspirin Chewable) 81 mg PO DAILY [facility] Last Admin: 02/05/18 14:33 Dose: 81 mg Atorvastatin Calcium (Lipitor) 40 mg PO DAILY [facility] Last Admin: 02/05/18 14:32 Dose: 40 mg Carvedilol (Coreg) 25 mg PO Q12 [facility] Last Admin: 02/05/18 20:26 Dose: 25 mg Cinacalcet (Sensipar) 90 mg PO [facility] [place] Last Admin: 02/05/18 14:34 Dose: 90 mg Epoetin Abraham (Procrit) 2,000 unit IV [facility] [place] Last Admin: 02/05/18 14:30 Dose: 2,000 unit Guaifenesin/Dextromethorphan (Robitussin Dm) 5 ml PO Q4 PRN PRN Reason: Cough Hydralazine HCl (Apresoline) 100 mg PO TID [facility] Last Admin: 02/05/18 18:19 Dose: 100 mg Insulin Human Lispro (Humalog) 0 units SC [facility]; Protocol Last Admin: 02/06/18 06:57 Dose: Not Given Losartan Potassium (Cozaar) 100 mg PO DAILY [facility] Last Admin: 02/05/18 15:52 Dose: 100 mg Pantoprazole Sodium (Protonix Ec Tab) 40 mg PO DAILY [facility] Last Admin: 02/05/18 15:23 Dose: 40 mg Sevelamer Carbonate (Renvela) 2,400 mg PO TID [facility] Last Admin: 02/05/18 18:21 Dose: Not Given Vitamin B Complex/Vit C/Folic Acid (Nephro-Tao) 1 tab PO DAILY [facility] - Labs Labs: 02/06/18 04:20 02/06/18 04:20 - Constitutional Appears: No Acute Distress - Head Exam Head Exam: NORMAL INSPECTION - Respiratory Exam Respiratory Exam: Clear to Ausculation Bilateral - Cardiovascular Exam Cardiovascular Exam: REGULAR RHYTHM, +S1, +S2 - GI/Abdominal Exam GI & Abdominal Exam: Soft. absent: Distended, Tenderness - Extremities Exam Extremities Exam: absent: Pedal Edema - Neurological Exam Neurological Exam: Alert, CN II-XII Intact, Oriented x3 - Skin Skin Exam: Dry, Warm Assessment and Plan - Assessment and Plan (Free Text) Assessment: 57 year old female with a past medical history of HTN, diabetes and chronic kidney disease on HD admitted due to symptomatic bradycardia. s/p stress test showing anteroseptal defect with TID, Cardio considering cardiac cath. Plan: - stable HR - labs reviewed - nephro consulted, input appreciate continue HD MWF - Cardiology consulted, input appreciated - stress test abnormal, considering cardiac cath - BP meds adjusted - continue home meds - f/u labs in am - rest of plan as ordered
[2018-02-06] MEDS ORDERED: Multivitamin Vitamin B Complex (Nephro-Vite) Tab PO SCH (09:00)
--- NOTE | 2018-02-06 10:01 | CP.PCM.PCO ---
Assessment/Plan - Assessment and Plan (Free Text) Assessment: Patient seen and examined this morning. VSS, bp 144/76, HR 90. Denies chest pain, shortness of breath, nausea vomiting or diarrhea. Discussed with Patient the recommendations of retail sales specialist Dr Burton for cardiac cath given stress test results. Patient refusing to have it at this time. She will follow up with a retail sales specialist outpatient and will follow up with him outpatient. Will discharge home today and patient can follow up with PMD and cardio outpatient. RX for norvasc, coreg, hydralazine and cozaar will be provided as per cardio/nephro recommendations. Discussed with Dr Campbell who agrees.
[2018-02-06] MEDS: Pantoprazole 40 mg EC Tab PO SCH (10:36)
[2018-02-06 12:34] VITALS: BP 175/57; PULSE 64; TEMP 98.4; O2SAT 97
--- NOTE | 2018-02-06 15:35 | PQF ---
PROVIDER RESPONSE TEXT: Chronic diastolic chf REVIEWER QUERY TEXT: Conflicting Documentation Clarification Please clarify the type of CHF. Documentation of Chronic CHF by Nephrology. Pro BNP 92,100 ECHO: EF:55-60% grade II pseudonormal filling dynamics, dilated LA, MR, TR pulmonary HTN-- see full r eport Medication: HOLD Coreg, A single mention or documentation of multiple diagnoses for the same clinical presentation appears in the record. Please clarify the diagnosis/diagnoses. The patient's Clinical Indicators include: Documentation of chronic CHF Query created by: Stephanie Rivera on 02/05/2018 1:20 PM Electronically signed by: Hussain Campbell 02/06/2018 3:32 PM
== END 2018-02-06 14:30 | disposition home or self-care (01) | DRG 544 ==
LOC: H.ER 15:14 → H.ERHOLD 19:16 → H.TEL 21:40 → OBSVTOIN 02-02 15:12
PROVIDERS: ADMIT Internal Medicine; ATTEND Internal Medicine
PROC: 5A1D70Z Performance of Urinary Filtration, Intermittent, Less than 6 Hours Per Day (ICD-10-PCS; principal; 2018-02-05)
DX: R00.1 Bradycardia, unspecified (principal); I50.32 Chronic diastolic (congestive) heart failure; N18.6 End stage renal disease; I13.2 Hypertensive heart and chronic kidney disease with heart failure and with stage 5 chronic kidney disease, or end stage renal disease; E11.22 Type 2 diabetes mellitus with diabetic chronic kidney disease; J44.9 Chronic obstructive pulmonary disease, unspecified; Z99.2 Dependence on renal dialysis; N25.81 Secondary hyperparathyroidism of renal origin; Z89.412 Acquired absence of left great toe; D63.1 Anemia in chronic kidney disease; R12 Heartburn; E78.00 Pure hypercholesterolemia, unspecified

== ENCOUNTER 2018-02-23 14:49 | Emergency (ER) | payer MEDICAID ==
[2018-02-23 14:49] VITALS: BMI 25.7
[2018-02-23 15:14] VITALS: RESP 18; TEMP 98.9; O2SAT 99
[2018-02-23] MEDS ORDERED: Sodium Chloride 0.9% 1,000 ML IV STA (15:32)
--- NOTE | 2018-02-23 15:49 | ED PDOC ---
HPI:Nausea, Vomiting, Diarrhea Time Seen by Provider: 02/23/18 15:23 Chief Complaint (Nursing): Abdominal Pain Chief Complaint (Provider): Nausea, Vomiting, Diarrhea History Per: Patient History/Exam Limitations: no limitations Onset/Duration Of Symptoms: Days (x2) Current Symptoms Are (Timing): Still Present Additional Complaint(s): Carlie Sanchez, a 58 year old female who is a dialysis patient, presents the the ED complaining of nausea, vomiting, and diarrhea onset x2 days after her dialysis session. She states that yesterday she had a appointment with her doct or, but it was cancelled due to the snowstorm. Patient reports that she initially vomited what she recently ate but has not been able to eat for 24 hours. She also reports abdominal pain onset today. She denies blood in stool or vomit. She states she did go to dialysis today and came to ED afterwards. PCP: Dr. Hussain Campbell Past Medical History Reviewed: Historical Data, Nursing Documentation, Vital Signs Vital Signs: Last Vital Signs Temp 98.9 F 02/23/18 15:08 Pulse 56 L 02/23/18 15:08 Resp 18 02/23/18 15:08 BP 185/76 H 02/23/18 15:08 Pulse Ox 99 02/23/18 15:08 - Medical History PMH: Bronchitis, COPD, Diabetes, HTN, Hypercholesterolemia, End Stage Renal D isease, Chronic Kidney Disease Denies: HIV, Kidney Stones - Family History Family History: States: Diabetes, Hypertension - Immunization History Hx Tetanus Toxoid Vaccination: No Hx Influenza Vaccination: No Hx Pneumococcal Vaccination: No - Home Medications Home Medications: Ambulatory Orders Medication Instructions Recorded RX: Aspirin [Aspirin Chewable] 81 mg PO DAILY #30 chew 07/25/17 RX: Atorvastatin [Lipitor] 40 mg PO DAILY #30 tab 07/25/17 RX: Cinacalcet [Sensipar] 90 mg PO MWF 01/31/18 RX: Sevelamer Carbonate [Renvela] 2,400 mg PO TID 01/31/18 Pantoprazole [Protonix] 40 mg PO DAILY #30 ect 02/06/18 RX: Carvedilol [Coreg] 25 mg PO Q12 #60 tab 02/06/18 RX: Losartan [Cozaar] 100 mg PO DAILY #30 tab 02/06/18 RX: amLODIPine [Norvasc] 10 mg PO DAILY #30 tab 02/06/18 RX: hydrALAZINE [Apresoline] 100 mg PO TID #90 tab 02/06/18 - Allergies Allergies/Adverse Reactions: Allergies Allergy/AdvReac Type Severity Reaction Status Date / Time vancomycin Allergy ITCHING Verified 01/31/18 15:16 Review of Systems ROS Statement: Except As Marked, All Systems Reviewed And Found Negative Gastrointestinal: Positive for: Nausea (x2 days), Vomiting (x2 days), Abdominal Pain (x1 days), Diarrhea (x2 days). Negative for: Hematochezia, Hematemesis Physical Exam - Reviewed Nursing Documentation Reviewed: Yes Vital Signs Reviewed: Yes - Physical Exam Appears: Positive for: No Acute Distress Skin: Positive for: Dry (lips dry) Cardiovascular/Chest: Positive for: Regular Rate, Rhythm. Negative for: Murmur Respiratory: Positive for: Normal Breath Sounds. Negative for: Respiratory D istress Gastrointestinal/Abdominal: Positive for: Soft, Tenderness (mild epigastric tenderness) Extremity: Positive for: Other (fistula to right arm with no active bleeding or signs of infection.) - Laboratory Results Result Diagrams: 02/23/18 16:00 02/23/18 16:00 - ECG O2 Sat by Pulse Oximetry: 99 (RA) Pulse Ox Interpretation: Normal Medical Decision Making Medical Decision Making: Time: 1531 Initial plan: workup for gastroenteritis. Patient appears dehydrated secondary to symptoms. --labs --IV fluids --UA --EKG --Zofran 4 mg IVP --no imaging planned at this time Scribe Attestation: Documented by Jose Caputo, acting as a scribe for Rebekah Prescott MD. Provider Scribe Attestation: All medical record entries made by the Scribe were at my direction and personally dictated by me. I have reviewed the chart and agree that the record accurately reflects my personal performance of the history, physical exam, medical decision making, and the department course for this patient. I have also personally directed, reviewed, and agree with the discharge instructions and disposition. 1740: Pt with resolved symptoms after Zofran and IV fluids. Pt did not receive the full bag of NS because peripheral line became infiltrated. Pt now tolerating PO and will be discharged home. Pt instructed to follow up with primary doctor on Monday and return parameters discussed via [employer] plan counselor service. Disposition - Clinical Impression Clinical Impression: Gastritis - Disposition Disposition Time: 17:40 Condition: IMPROVED Additional Instructions: Follow up with primary doctor on Monday. Increase water and clear fluids. Return to the emergency department if symptoms worsen or if new symptoms develop. Instructions: Gastritis (DC) Forms: [facility] (Belarusian) Print Language: CHINESE
[2018-02-23 16:32] LABS: BASO # 0.1 K/uL (0.0-0.2); BASO % 1.1 % (0.0-2.0); EOS # 0.1 K/uL (0.0-0.7); EOS % 1.9 % (0.0-4.0); HEMOGLOBIN 9.7 g/dL (12.0-16.0); LYMPH # 0.8 K/uL (1.0-4.3); LYMPH % 13.7 % (20.0-40.0); MEAN CELL VOLUME 93.3 fl (81.0-99.0); MEAN CORPUSCULAR HEMOGLOBIN 30.2 pg (27.0-31.0); MEAN CORPUSCULAR HGB CONC 32.4 g/dL (33.0-37.0); MEAN PLATELET VOLUME 9.5 fl (7.2-11.7); MONO # 0.5 K/uL (0.0-0.8); MONO % 8.9 % (0.0-10.0); NEUT # 4.2 K/uL (1.8-7.0); NEUT % 74.4 % (50.0-75.0); RBC 3.22 Mil/uL (3.80-5.20); RED CELL DISTRIBUTION WIDTH 18.9 % (11.5-14.5); WHITE BLOOD COUNT 5.6 K/uL (4.8-10.8)
[2018-02-23 16:34] LABS: VENOUS BLOOD GAS BASE EXCESS 14.1 mmol/L (0.0-2.0); VENOUS BLOOD GAS PCO2 41 mmHg (40-60); VENOUS BLOOD GAS PO2 46 mm/Hg (30-55); VENOUS BLOOD PH 7.57 (7.32-7.43)
[2018-02-23 16:45] LABS: ALB/GLOB RATIO 1.1 (1.0-2.1); CALCIUM 9.7 mg/dL (8.4-10.2)
[2018-02-23 18:36] VITALS: BP 132/72; PULSE 88
--- NOTE | 2018-02-23 19:20 | CARD ---
APPROVED REPORT Date of service: 02/23/2018 EKG Measurement Heart [id number] OR [id number] <Conclusion> Sinus bradycardia Left axis deviation Left bundle branch block Abnormal ECG
== END 2018-02-23 18:36 | disposition home or self-care (01) ==
LOC: H.ER 14:49
DX: K29.70 Gastritis, unspecified, without bleeding (principal); J44.9 Chronic obstructive pulmonary disease, unspecified; Z79.82 Long term (current) use of aspirin; I12.0 Hypertensive chronic kidney disease with stage 5 chronic kidney disease or end stage renal disease; Z99.2 Dependence on renal dialysis; N18.6 End stage renal disease; E78.00 Pure hypercholesterolemia, unspecified
CPT/HCPCS: 80053; 82803; 82948; 83690; 85025; 87804; 93005; 96374; 99283; J2405; J7030

== ENCOUNTER 2018-05-02 10:52 | Inpatient (IN) | payer MEDICAID ==
[2018-05-02 11:51] LABS: BASO # 0.1 K/uL (0.0-0.2); BASO % 1.2 % (0.0-2.0); EOS # 0.1 K/uL (0.0-0.7); EOS % 1.5 % (0.0-4.0); HEMOGLOBIN 10.4 g/dL (12.0-16.0); LYMPH # 0.7 K/uL (1.0-4.3); LYMPH % 12.1 % (20.0-40.0); MEAN CELL VOLUME 91.2 fl (81.0-99.0); MEAN CORPUSCULAR HEMOGLOBIN 29.1 pg (27.0-31.0); MEAN CORPUSCULAR HGB CONC 31.9 g/dL (33.0-37.0); MEAN PLATELET VOLUME 10.1 fl (7.2-11.7); MONO # 0.6 K/uL (0.0-0.8); MONO % 10.2 % (0.0-10.0); NEUT # 4.4 K/uL (1.8-7.0); NRBC % 0.1 % (0.0-0.0); RBC 3.57 Mil/uL (3.80-5.20); RED CELL DISTRIBUTION WIDTH 16.9 % (11.5-14.5); WHITE BLOOD COUNT 5.9 K/uL (4.8-10.8)
--- NOTE | 2018-05-02 12:09 | ED PDOC ---
Syncope/Near Syncope/Dizziness Time Seen by Provider: 05/02/18 11:21 Chief Complaint (Nursing): Dizziness/Lightheaded Chief Complaint (Provider): Dizziness/Lightheaded History Per: Patient, [employer] ([id number]) Onset/Duration Of Symptoms: Hrs Current Symptoms Are (Timing): Still Present Additional Complaint(s): 58 year old female with a past medical history of hypertension, hypercholesterolemia, diabetes, and end stage renal disease who is presenting to the ED for evaluation of dizziness onset this morning. Patient states that she woke up this morning and her blood pressure was high so she took her medications after which the blood pressure lowered. She states that she is due for dialysis today. Patient denes any chest pain or shortness of breath. PMD: Hussain Campbell Past Medical History Reviewed: Historical Data, Nursing Documentation, Vital Signs Vital Signs: Last Vital Signs Temp 97.4 F L 05/02/18 10:57 Pulse 35 L 05/02/18 12:06 Resp 20 05/02/18 12:06 BP 112/54 L 05/02/18 12:06 Pulse Ox 100 05/02/18 12:06 - Medical History PMH: Bronchitis, Cardia Arrhythmia (BRADYCARDIA), COPD, Diabetes, HTN, Hypercholesterolemia, End Stage Renal Disease (DIALYSIS M-W-F), Chronic Kidney Disease Denies: HIV, Kidney Stones - Surgical History Other surgeries: Tubal Ligation - Family History Family History: States: Unknown Family Hx, Diabetes, Hypertension - Social History Current smoker - smoking cessation education provided: No Alcohol: None Drugs: Denies - Immunization History Hx Tetanus Toxoid Vaccination: No Hx Influenza Vaccination: No Hx Pneumococcal Vaccination: No - Home Medications Home Medications: Ambulatory Orders Medication Instructions Recorded Sevelamer Carbonate [Renvela] 2,400 mg PO TID 01/31/18 Benzonatate [Tessalon Perles] 100 mg PO Q8 PRN 05/02/18 Aspirin [Aspirin Chewable] 81 mg PO DAILY #30 chew 05/04/18 Atorvastatin [Lipitor] 40 mg PO DAILY #30 tab 05/04/18 Cinacalcet [Sensipar] 90 mg PO DAILY #30 tab 05/04/18 Folic Acid/Vit B Complex and C 1 tab PO DAILY #30 tablet 05/04/18 [Renal Vitamin Tablet] Lisinopril [Zestril] 20 mg PO Q12 #60 tab 05/04/18 Pantoprazole [Protonix EC Tab] 40 mg PO DAILY #30 ect 05/04/18 amLODIPine [Norvasc] 10 mg PO DAILY #30 tab 05/04/18 hydrALAZINE [Apresoline] 100 mg PO TID #90 tab 05/04/18 - Allergies Allergies/Adverse Reactions: Allergies Allergy/AdvReac Type Severity Reaction Status Date / Time vancomycin Allergy ITCHING Verified 01/31/18 15:16 Review of Systems ROS Statement: Except As Marked, All Systems Reviewed And Found Negative Cardiovascular: Negative for: Chest Pain Respiratory: Negative for: Shortness of Breath Neurological: Positive for: Dizziness Physical Exam - Reviewed Nursing Documentation Reviewed: Yes Vital Signs Reviewed: Yes - Physical Exam Appears: Positive for: Non-toxic, No Acute Distress Head Exam: Positive for: ATRAUMATIC, NORMAL INSPECTION, NORMOCEPHALIC Skin: Positive for: Normal Color, Warm, DRY Eye Exam: Positive for: EOMI, Normal appearance, PERRL ENT: Positive for: Normal ENT Inspection Neck: Positive for: Normal, Painless ROM Cardiovascular/Chest: Positive for: Bradycardia, Irregularly Irregular. Negative for: Murmur Respiratory: Positive for: Normal Breath Sounds. Negative for: Respiratory Distress Gastrointestinal/Abdominal: Positive for: Normal Exam, Soft. Negative for: Tenderness Back: Positive for: Normal Inspection Extremity: Positive for: Normal ROM, Other (shunt right upper extremity ) Neurologic/Psych: Positive for: Alert, Oriented. Negative for: Motor/Sensory Deficits - Laboratory Results Result Diagrams: 05/03/18 04:10 05/03/18 04:10 - ECG ECG Rhythm: Positive for: Left Bundle Branch Block ((old compared to 02/25)) Interpretation Of Abn EKG: irregular rhythm Rate: 37 O2 Sat by Pulse Oximetry: 100 (RA) Pulse Ox Interpretation: Normal - Critical Care Total Time (In Min): 60 Documented Critical Care: Time excludes all time spent performint seperately billable procedures Medical Decision Making Medical Decision Making: Time: 11:22 Plan: --CT Head --EKG --CMP --Troponin --CBC --Coags --Chest X-Ray Upon review of medications, patient is taking Coreg and metoprolol. 12:[address] Mai, emergent dialysis. Case discussed with Dr. Campbell. Scribe Attestation: Documented by Martita Wall, acting as a scribe for Renee Ramirez MD. Provider Scribe Attestation: All medical record entries made by the Scribe were at my direction and personally dictated by me. I have reviewed the chart and agree that the record accurately reflects my personal performance of the history, physical exam, medical decision making, and the department course for this patient. I have also personally directed, reviewed, and agree with the discharge instructions and disposition. Disposition - Clinical Impression Clinical Impression: Hyperkalemia, Bradycardia, ESRD on dialysis - Patient ED Disposition Is Patient to be Admitted: Yes - Disposition Disposition Time: 13:09 Condition: GUARDED - Pt Status Changed To: Hospital Disposition Of: Inpatient - Admit Certification Admit to Inpatient:: After my assessment, the patient will require hospitalizati on for at least two midnights. This is because of the severity of symptoms shown, intensity of services needed, and/or the medical risk in this patient being treated as an outpatient. - POA Present On Arrival: Poor Glycemic Control
[2018-05-02 12:10] LABS: ALB/GLOB RATIO 1.1 (1.0-2.1); ALBUMIN 3.9 g/dL (3.5-5.0); CALCIUM 7.9 mg/dL (8.4-10.2)
[2018-05-02 12:12] LABS: INR 1.4; PROTHROMBIN TIME 16.2 Seconds (9.8-13.1)
[2018-05-02 12:13] LABS: TROPONIN I 0.02 ng/mL (0.00-0.120)
[2018-05-02 12:15] LABS: PARTIAL THROMBOPLASTIN TIME 39.2 Seconds (25.6-37.1)
[2018-05-02] MEDS ORDERED: Albuterol 0.083% Inhal Sol (2.5 mg/3 mL) UD ONE ×2 (12:16→12:29)
[2018-05-02] MEDS ORDERED: Insulin Regular 100 units/ml ONE (12:21)
[2018-05-02] MEDS ORDERED: Sodium Bicarbonate 4.2% Inj (Infant) IVP STA (12:33)
[2018-05-02] MEDS ORDERED: Sod Polystyrene Sulf 15 gm/60 ml Susp PO STA ×2 (12:33→12:58)
[2018-05-02] MEDS ORDERED: Calcium Chloride 1000 mg/10 ml Syringe IV STA (12:34)
[2018-05-02] MEDS ORDERED: Dextrose 50% SYRINGE Inj (50 ml) IVP STA (12:36)
[2018-05-02] MEDS ORDERED: Insulin Regular 100 units/ml IV STA (12:36)
[2018-05-02] MEDS ORDERED: Albuterol 0.083% Inhal Sol (2.5 mg/3 mL) UD INH STA ×2 (12:37)
[2018-05-02] MEDS ORDERED: Sodium Bicarbonate (8.4%) 50 Meq Syringe IVP STA (12:51)
--- NOTE | 2018-05-02 13:38 | CP.PCM.HP ---
<Whitley Aragon - Last Filed: 05/02/18 14:27> History of Present Illness - History of Present Illness History of Present Illness: HPI: 58 YO Female with PMHx of HTN, NIDDM, ESRD (on HD MWF) presents to [facility] ED for hypotension, and dizziness. Pt states that she started experiencing dizziness this morning, sudden onset. She checked her BP at home and found that her BP was very low (systolic 100's-110), normal systolic is 130's-140's at home. Pt tried to sit down for a while but dizziness persisted which caused pt to call ambulance. Denies LOC, chest pain, dyspnea, palpitations, n/v. Vosebastián [id number] PMD: Dr Pau Hansen PMH: Bronchitis, COPD, Diabetes, HTN, End Stage Renal Disease, Chronic Kidney Disease Meds: as bellow PSH: denies FMH: DM and HTN Allergies: vancomycin SH: denies tobacco, etoh, ilicit drugs. Present on Admission - Present on Admission Any Indicators Present on Admission: No Review of Systems - EENT Eyes: absent: Change in Vision - Cardiovascular Cardiovascular: absent: Chest Pain, Dyspnea, Palpitations - Respiratory Respiratory: absent: Cough, Dyspnea - Gastrointestinal Gastrointestinal: absent: Abdominal Pain - Neurological Neurological: Dizziness. absent: Confusion, Focal Weakness, Weakness Past Patient History - Past Medical History & Family History Past Medical History?: Yes - Past Social History Smoking Status: Never Smoked Alcohol: None Drugs: Denies - CARDIAC Hx Cardia Arrhythmia: Yes (BRADYCARDIA) Hx Hypercholesterolemia: Yes Hx Hypertension: Yes - PULMONARY Hx Bronchitis: Yes Hx Chronic Obstructive Pulmonary Disease (COPD): Yes - NEUROLOGICAL Hx Neurological Disorder: No - HEENT Hx HEENT Problems: No - RENAL Hx Chronic Kidney Disease: Yes Hx Kidney Stones: No - ENDOCRINE/METABOLIC Hx Endocrine Disorders: Yes Hx Diabetes Mellitus Type 2: Yes - HEMATOLOGICAL/ONCOLOGICAL Hx Human Immunodeficiency Virus (HIV): No - INTEGUMENTARY Hx Dermatological Problems: No - MUSCULOSKELETAL/RHEUMATOLOGICAL Hx Musculoskeletal Disorders: No Hx Falls: No - GASTROINTESTINAL Hx Gastrointestinal Disorders: No - GENITOURINARY/GYNECOLOGICAL Hx Genitourinary Disorders: No - PSYCHIATRIC Hx Psychophysiologic Disorder: No Hx Substance Use: No - SURGICAL HISTORY Hx Surgeries: Yes Hx Vascular Surgery: Yes (Right and Left AV fistula placement) Other/Comment: Left great toe amputation (2002); Tubal ligation, RUE AND LUE FISTULA. - ANESTHESIA Hx Anesthesia: Yes Hx Anesthesia Reactions: No Hx Malignant Hyperthermia: No Meds Allergies/Adverse Reactions: Allergies Allergy/AdvReac Type Severity Reaction Status Date / Time vancomycin Allergy ITCHING Verified 01/31/18 15:16 Physical Exam - Constitutional Appears: No Acute Distress, Other (on NC 2L ) Additional comments: poor dentition - Head Exam Head Exam: NORMAL INSPECTION - Eye Exam Eye Exam: Normal appearance - ENT Exam ENT Exam: Mucous Membranes Moist - Respiratory Exam Respiratory Exam: Clear to Auscultation Bilateral, NORMAL BREATHING PATTERN. absent: Rhonchi, Wheezes - Cardiovascular Exam Cardiovascular Exam: REGULAR RHYTHM, +S1, +S2 - GI/Abdominal Exam GI & Abdominal Exam: Normal Bowel Sounds, Soft. absent: Tenderness Additional comments: abdominal hernia noted, midline approx 5cm x 4cm NT and reducible - Extremities Exam Extremities exam: Positive for: normal inspection. Negative for: pedal edema Additional comments: dry skin Fistula on RUE, thrill palpable Closed fistula on LUE Results - Vital Signs Recent Vital Signs: Last Vital Signs Temp 97.4 F L 05/02/18 10:57 Pulse 63 05/02/18 13:36 Resp 18 05/02/18 13:36 BP 183/72 H 05/02/18 13:36 Pulse Ox 100 05/02/18 13:36 - Labs Result Diagrams: 05/02/18 11:41 05/02/18 11:41 Labs: Laboratory Results - last 24 hr 05/02/18 05/02/18 05/02/18 11:03 11:41 11:41 WBC 5.9 RBC 3.57 L Hgb 10.4 L Hct 32.5 L MCV 91.2 D MCH 29.1 MCHC 31.9 L RDW 16.9 H Plt Count 155 MPV 10.1 Neut % (Auto) 75.0 Lymph % (Auto) 12.1 L Creek % (Auto) 10.2 H Eos % (Auto) 1.5 Baso % (Auto) 1.2 Neut # (Auto) 4.4 Lymph # (Auto) 0.7 L Creek # (Auto) 0.6 Eos # (Auto) 0.1 Baso # (Auto) 0.1 PT INR APTT Sodium 132 Potassium 6.4 H* D Chloride 92 L Carbon Dioxide 25 Anion Gap 21 H BUN 72 H Creatinine 5.3 H Est GFR ( Amer) 10 Est GFR (Non-Af Amer) 8 POC Glucose (mg/dL) 199 H Random Glucose 166 H Calcium 7.9 L Total Bilirubin 0.4 AST 48 H D ALT 41 Alkaline Phosphatase 165 H D Troponin I 0.0200 Total Protein 7.4 Albumin 3.9 Globulin 3.5 Albumin/Globulin Ratio 1.1 05/02/18 11:41 WBC RBC Hgb Hct MCV MCH MCHC RDW Plt Count MPV Neut % (Auto) Lymph % (Auto) Creek % (Auto) Eos % (Auto) Baso % (Auto) Neut # (Auto) Lymph # (Auto) Creek # (Auto) Eos # (Auto) Baso # (Auto) PT 16.2 H INR 1.4 APTT 39.2 H Sodium Potassium Chloride Carbon Dioxide Anion Gap BUN Creatinine Est GFR ( Amer) Est GFR (Non-Af Amer) POC Glucose (mg/dL) Random Glucose Calcium Total Bilirubin AST ALT Alkaline Phosphatase Troponin I Total Protein Albumin Globulin Albumin/Globulin Ratio Assessment & Plan (1) Bradycardia Status: Acute (2) Hyperkalemia Status: Acute (3) ESRD on dialysis Status: Chronic (4) Anemia Status: Chronic - Assessment and Plan (Free Text) Assessment: Assessment/Plan: 58 YO Female with PMHx of HTN, NIDDM, ESRD (on HD MWF) is admitted for hyperkalemia (w/ EKG changes), bradycardia, and a fib. Hyperkalemia -likely 2/2 to missed HD -EKG with A fib with LBBB, follow up official read -STAT HD today -Nephrology consulted -follow up labs Arrhythmia -EKG Aifb with bradycardia -hx of sinus bradycardia, new onset a fib -Echo 01/25; L atrial enlargement, EF 55-60%, tricuspid regurg -improving -stat HD -follow up EKG -consider cardiology if EKG persists HTN, NIDDM -chronic -c/w home meds -low dose sliding, hypoglycemia protocol Anemia -chronic -likely 2/2 ESRD DVT prolx: Heparin SC Plan as ordered <Hussain Campbell - Last Filed: 05/03/18 09:24> Results - Vital Signs Recent Vital Signs: Last Vital Signs Temp 97.8 F 05/03/18 08:25 Pulse 54 L 05/03/18 08:25 Resp 20 05/03/18 08:25 BP 177/62 H 05/03/18 08:25 Pulse Ox 93 L 05/03/18 08:25 - Labs Result Diagrams: 05/03/18 04:10 05/03/18 04:10 Labs: Laboratory Results - last 24 hr 05/02/18 05/02/18 05/02/18 11:03 11:41 11:41 WBC 5.9 RBC 3.57 L Hgb 10.4 L Hct 32.5 L MCV 91.2 D MCH 29.1 MCHC 31.9 L RDW 16.9 H Plt Count 155 MPV 10.1 Neut % (Auto) 75.0 Lymph % (Auto) 12.1 L Creek % (Auto) 10.2 H Eos % (Auto) 1.5 Baso % (Auto) 1.2 Neut # (Auto) 4.4 Lymph # (Auto) 0.7 L Creek # (Auto) 0.6 Eos # (Auto) 0.1 Baso # (Auto) 0.1 PT INR APTT Sodium 132 Potassium 6.4 H* D Chloride 92 L Carbon Dioxide 25 Anion Gap 21 H BUN 72 H Creatinine 5.3 H Est GFR ( Amer) 10 Est GFR (Non-Af Amer) 8 POC Glucose (mg/dL) 199 H Random Glucose 166 H Calcium 7.9 L Total Bilirubin 0.4 AST 48 H D ALT 41 Alkaline Phosphatase 165 H D Troponin I 0.0200 Total Protein 7.4 Albumin 3.9 Globulin 3.5 Albumin/Globulin Ratio 1.1 05/02/18 05/02/18 05/02/18 11:41 14:48 17:12 WBC RBC Hgb Hct MCV MCH MCHC RDW Plt Count MPV Neut % (Auto) Lymph % (Auto) Creek % (Auto) Eos % (Auto) Baso % (Auto) Neut # (Auto) Lymph # (Auto) Creek # (Auto) Eos # (Auto) Baso # (Auto) PT 16.2 H INR 1.4 APTT 39.2 H Sodium Potassium Chloride Carbon Dioxide Anion Gap BUN Creatinine Est GFR ( Amer) Est GFR (Non-Af Amer) POC Glucose (mg/dL) 88 151 H Random Glucose Calcium Total Bilirubin AST ALT Alkaline Phosphatase Troponin I Total Protein Albumin Globulin Albumin/Globulin Ratio 05/02/18 05/03/18 05/03/18 22:03 04:10 04:10 WBC 4.6 L RBC 3.33 L Hgb 9.7 L Hct 29.5 L MCV 88.6 D MCH 29.1 MCHC 32.8 L RDW 16.8 H Plt Count 135 MPV 10.4 Neut % (Auto) 72.3 Lymph % (Auto) 14.2 L Creek % (Auto) 9.9 Eos % (Auto) 2.2 Baso % (Auto) 1.4 Neut # (Auto) 3.3 Lymph # (Auto) 0.7 L Creek # (Auto) 0.5 Eos # (Auto) 0.1 Baso # (Auto) 0.1 PT INR APTT Sodium 135 Potassium 3.6 Chloride 95 L Carbon Dioxide 28 Anion Gap 16 BUN 29 H Creatinine 2.8 H Est GFR ( Amer) 21 Est GFR (Non-Af Amer) 17 POC Glucose (mg/dL) 116 H Random Glucose 123 H Calcium 8.2 L Total Bilirubin 0.4 AST 32 ALT 38 Alkaline Phosphatase 148 H Troponin I Total Protein 7.2 Albumin 3.7 Globulin 3.6 Albumin/Globulin Ratio 1.0 05/03/18 05:08 WBC RBC Hgb Hct MCV MCH MCHC RDW Plt Count MPV Neut % (Auto) Lymph % (Auto) Creek % (Auto) Eos % (Auto) Baso % (Auto) Neut # (Auto) Lymph # (Auto) Creek # (Auto) Eos # (Auto) Baso # (Auto) PT INR APTT Sodium Potassium Chloride Carbon Dioxide Anion Gap BUN Creatinine Est GFR ( Amer) Est GFR (Non-Af Amer) POC Glucose (mg/dL) 142 H Random Glucose Calcium Total Bilirubin AST ALT Alkaline Phosphatase Troponin I Total Protein Albumin Globulin Albumin/Globulin Ratio Assessment & Plan - Assessment and Plan (Free Text) Assessment: Patient was personally seen and examined by me in rounds with residents. Available labs and diagnostic data reviewed. Case, Patient's condition and management plan discussed with residents in rounds . Agree with resident's progress note. Plan: As ordered.
[2018-05-02] MEDS ORDERED: Glucagon Recombinant 1 mg Inj IM PRN (14:41)
[2018-05-02] MEDS ORDERED: Dextrose 50% SYRINGE Inj (50 ml) IV PRN (14:41)
--- NOTE | 2018-05-02 15:28 | CP.PCM.CON ---
History of Present Illness - History of Present Illness History of Present Illness: This patient who is 58 years of age female known to me with end-stage renal disease on maintenance hemodialysis Monday. Presented to the emergency room complaining of dizziness weakness and [facility] showed severe hyperkalemia for which she was treated immediately with multiple medications in the ER and the patient admitted for further evaluation and emergent hemodialysis called . Patient known with multitude of medical problem including hypertension medical history Diabetes mellitus, severe hypertension, COPD, anemia, history of secondary hyperparathyroidism and hyperphosphatemia in addition to end-stage renal disease on maintenance hemodialysis Social history not contributory And family history see the detailed in the history and physical examination Review of Systems - Constitutional Constitutional: Anorexia - EENT Eyes: absent: Exophthalmos Nose/Mouth/Throat: absent: Epistaxis, Sore Throat - Cardiovascular Cardiovascular: Dyspnea on Exertion, Leg Edema, Lightheadedness. absent: Chest Pain - Respiratory Respiratory: Chest Congestion. absent: Hemoptysis - Gastrointestinal Gastrointestinal: absent: Abdominal Pain, Coffee Ground Emesis, Cramping, Vomiting - Genitourinary Genitourinary: Nocturia - Musculoskeletal Musculoskeletal: Muscle Weakness. absent: Abnormal Gait - Neurological Neurological: Disequilibrium, Dizziness. absent: Convulsions, Numbness, Focal Weakness - Psychiatric Psychiatric: absent: Anxiety - Endocrine Endocrine: Fatigue - Hematologic/Lymphatic Hematologic: absent: Easy Bleeding Past Patient History - Past Medical History & Family History Past Medical History?: Yes - Past Social History Smoking Status: Never Smoked Alcohol: None Drugs: Denies - CARDIAC Hx Cardia Arrhythmia: Yes (BRADYCARDIA) Hx Hypercholesterolemia: Yes Hx Hypertension: Yes - PULMONARY Hx Bronchitis: Yes Hx Chronic Obstructive Pulmonary Disease (COPD): Yes - NEUROLOGICAL Hx Neurological Disorder: No - HEENT Hx HEENT Problems: No - RENAL Hx Chronic Kidney Disease: Yes Hx Kidney Stones: No - ENDOCRINE/METABOLIC Hx Endocrine Disorders: Yes Hx Diabetes Mellitus Type 2: Yes - HEMATOLOGICAL/ONCOLOGICAL Hx Human Immunodeficiency Virus (HIV): No - INTEGUMENTARY Hx Dermatological Problems: No - MUSCULOSKELETAL/RHEUMATOLOGICAL Hx Musculoskeletal Disorders: No Hx Falls: No - GASTROINTESTINAL Hx Gastrointestinal Disorders: No - GENITOURINARY/GYNECOLOGICAL Hx Genitourinary Disorders: No - PSYCHIATRIC Hx Psychophysiologic Disorder: No Hx Substance Use: No - SURGICAL HISTORY Hx Surgeries: Yes Hx Vascular Surgery: Yes (Right and Left AV fistula placement) Other/Comment: Left great toe amputation (2002); Tubal ligation, RUE AND LUE FISTULA. - ANESTHESIA Hx Anesthesia: Yes Hx Anesthesia Reactions: No Hx Malignant Hyperthermia: No Meds Allergies/Adverse Reactions: Allergies Allergy/AdvReac Type Severity Reaction Status Date / Time vancomycin Allergy ITCHING Verified 01/31/18 15:16 - Medications Medications: Current Medications Acetaminophen (Tylenol 325mg Tab) 650 mg PO Q6 PRN PRN Reason: Fever >100.4 F Acetaminophen (Tylenol 325mg Tab) 650 mg PO Q6 PRN PRN Reason: Pain, Mild (1-3) Aspirin (Aspirin Chewable) 81 mg PO DAILY [facility] Atorvastatin Calcium (Lipitor) 40 mg PO DAILY [facility] Cinacalcet (Sensipar) 90 mg PO DAILY [facility] Dextrose (Dextrose 50% Inj) 0 ml IV STAT PRN; Protocol PRN Reason: Hypoglycemia Protocol Dextrose (Glutose 15) 0 gm PO ONCE PRN; Protocol PRN Reason: Hypoglycemia Protocol Glucagon (Glucagen Diagnostic Kit) 0 mg IM STAT PRN; Protocol PRN Reason: Hypoglycemia Protocol Heparin Sodium (Porcine) (Heparin) 5,000 units SC Q8 [facility]; Protocol Hydralazine HCl (Apresoline) 100 mg PO TID [facility] Insulin Human Regular (Humulin R) 0 units SC ACHS [facility]; Protocol Lisinopril (Zestril) 20 mg PO Q12 [facility] Pantoprazole Sodium (Protonix Ec Tab) 40 mg PO DAILY [facility] Sevelamer Carbonate (Renvela) 2,400 mg PO TID [facility] Vitamin B Complex/Vit C/Folic Acid (Nephro-Tao) 1 tab PO DAILY [facility] Physical Exam - Constitutional Appears: No Acute Distress, Agitated - Eye Exam Eye Exam: Conjunctival injection - ENT Exam ENT Exam: Mucous Membranes Moist - Neck Exam Neck exam: Negative for: Lymphadenopathy - Respiratory Exam Respiratory Exam: absent: Chest Wall Tenderness, Rales - Cardiovascular Exam Cardiovascular Exam: absent: Gallop, JVD, Rubs - GI/Abdominal Exam GI & Abdominal Exam: Normal Bowel Sounds - Extremities Exam Extremities exam: Negative for: calf tenderness - Back Exam Back exam: absent: CVA tenderness (L), CVA tenderness (R) - Neurological Exam Neurological exam: Alert - Psychiatric Exam Psychiatric exam: Normal Affect Results - Vital Signs Recent Vital Signs: Last Vital Signs Temp 98.0 F 05/02/18 15:00 Pulse 52 L 01/23/19 15:00 Resp 20 05/02/18 15:00 BP 190/79 H 05/02/18 15:00 Pulse Ox 100 05/02/18 15:00 - Labs Result Diagrams: 05/03/18 04:10 05/03/18 04:10 Labs: Laboratory Results - last 24 hr 05/02/18 05/02/18 05/02/18 11:03 11:41 11:41 WBC 5.9 RBC 3.57 L Hgb 10.4 L Hct 32.5 L MCV 91.2 D MCH 29.1 MCHC 31.9 L RDW 16.9 H Plt Count 155 MPV 10.1 Neut % (Auto) 75.0 Lymph % (Auto) 12.1 L Toombs % (Auto) 10.2 H Eos % (Auto) 1.5 Baso % (Auto) 1.2 Neut # (Auto) 4.4 Lymph # (Auto) 0.7 L [place] # (Auto) 0.6 Eos # (Auto) 0.1 Baso # (Auto) 0.1 PT INR APTT Sodium 132 Potassium 6.4 H* D Chloride 92 L Carbon Dioxide 25 Anion Gap 21 H BUN 72 H Creatinine 5.3 H Est GFR ( Amer) 10 Est GFR (Non-Af Amer) 8 POC Glucose (mg/dL) 199 H Random Glucose 166 H Calcium 7.9 L Total Bilirubin 0.4 AST 48 H D ALT 41 Alkaline Phosphatase 165 H D Troponin I 0.0200 Total Protein 7.4 Albumin 3.9 Globulin 3.5 Albumin/Globulin Ratio 1.1 05/02/18 05/02/18 11:41 14:48 WBC RBC Hgb Hct MCV MCH MCHC RDW Plt Count MPV Neut % (Auto) Lymph % (Auto) Toombs % (Auto) Eos % (Auto) Baso % (Auto) Neut # (Auto) Lymph # (Auto) [place]ombs # (Auto) Eos # (Auto) Baso # (Auto) PT 16.2 H INR 1.4 APTT 39.2 H Sodium Potassium Chloride Carbon Dioxide Anion Gap BUN Creatinine Est GFR ( Amer) Est GFR (Non-Af Amer) POC Glucose (mg/dL) 88 Random Glucose Calcium Total Bilirubin AST ALT Alkaline Phosphatase Troponin I Total Protein Albumin Globulin Albumin/Globulin Ratio Assessment & Plan (1) Bradycardia Status: Acute (2) Hyperkalemia Status: Acute (3) Anemia Status: Chronic (4) ESRD on dialysis Assessment and Plan: ESRD admitted with hyperkalemia Hyperkalemia bradycardia dysiness anemia hyperphosphatemia secondary hyperparathyroidism THE PLAN emergent HD consent was taking continue home meds Continue antihypertensive medication and phosphorus binder Check serum phosphorus and PTH if she is staying longer. Status: Chronic
--- NOTE | 2018-05-02 15:36 | RAD ---
Date of service: 05/02/2018 HISTORY: Dizziness COMPARISON: Chest radiograph dated 01/31/2018. FINDINGS: LUNGS: Prominence of the pulmonary vasculature may be secondary to AP technique and/or pulmonary vascular congestion. No focal consolidation. PLEURA: No significant pleural effusion identified, no pneumothorax apparent. CARDIOVASCULAR: Aortic atherosclerotic calcifications. Cardiomediastinal silhouette stably enlarged. OSSEOUS STRUCTURES: Unchanged. VISUALIZED UPPER ABDOMEN: Normal. OTHER FINDINGS: Overlying pacer pads present. IMPRESSION: Prominence of the pulmonary vasculature may be secondary to AP technique and/or pulmonary vascular congestion. No focal consolidation or pleural effusion.
--- NOTE | 2018-05-02 16:15 | CT ---
Date of service: 05/02/2018 PROCEDURE: CT HEAD WITHOUT CONTRAST. HISTORY: Dizziness COMPARISON: CT head dated 01/31/2018 TECHNIQUE: Axial computed tomography images were obtained through the head/brain without intravenous contrast. Radiation dose: Total exam DLP = 827.26 mGy-cm. This CT exam was performed using one or more of the following dose reduction techniques: Automated exposure control, adjustment of the mA and/or kV according to patient size, and/or use of iterative reconstruction technique. FINDINGS: HEMORRHAGE: No intracranial hemorrhage. BRAIN: No mass effect or edema. Atrophy. Chronic microvascular ischemic changes. Bilateral basal ganglia lacunar infarctions. VENTRICLES: Unremarkable. No hydrocephalus. CALVARIUM: Unremarkable. PARANASAL SINUSES: Unremarkable as visualized. No significant inflammatory changes. MASTOID AIR CELLS: Unremarkable as visualized. No inflammatory changes. OTHER FINDINGS: None. IMPRESSION: No acute intracranial pathology. Age-related changes. No significant interval change.
[2018-05-02 17:36] VITALS: BMI 24.3
[2018-05-02] MEDS: Insulin Regular 100 units/ml SC SCH ×2 (18:11→22:19)
--- NOTE | 2018-05-03 00:03 | CARD ---
APPROVED REPORT Date of service: 05/02/2018 EKG Measurement Heart [id number] <Conclusion> Marked sinus bradycardia Left bundle branch block Abnormal ECG
--- NOTE | 2018-05-03 00:12 | CARD ---
APPROVED REPORT Date of service: 05/02/2018 EKG Measurement Heart [id number] <Conclusion> Junctional bradycardia Left bundle branch block Abnormal ECG
--- NOTE | 2018-05-03 00:18 | CARD ---
APPROVED REPORT Date of service: 05/02/2018 EKG Measurement Heart [id number] <Conclusion> Junctional bradycardia Left bundle branch block Abnormal ECG
[2018-05-03 06:10] LABS: BASO # 0.1 K/uL (0.0-0.2); BASO % 1.4 % (0.0-2.0); EOS # 0.1 K/uL (0.0-0.7); EOS % 2.2 % (0.0-4.0); HEMOGLOBIN 9.7 g/dL (12.0-16.0); LYMPH # 0.7 K/uL (1.0-4.3); LYMPH % 14.2 % (20.0-40.0); MEAN CELL VOLUME 88.6 fl (81.0-99.0); MEAN CORPUSCULAR HEMOGLOBIN 29.1 pg (27.0-31.0); MEAN CORPUSCULAR HGB CONC 32.8 g/dL (33.0-37.0); MEAN PLATELET VOLUME 10.4 fl (7.2-11.7); MONO # 0.5 K/uL (0.0-0.8); MONO % 9.9 % (0.0-10.0); NEUT # 3.3 K/uL (1.8-7.0); NEUT % 72.3 % (50.0-75.0); RBC 3.33 Mil/uL (3.80-5.20); RED CELL DISTRIBUTION WIDTH 16.8 % (11.5-14.5); WHITE BLOOD COUNT 4.6 K/uL (4.8-10.8)
[2018-05-03 06:24] LABS: ALBUMIN 3.7 g/dL (3.5-5.0); CALCIUM 8.2 mg/dL (8.4-10.2)
[2018-05-03] MEDS: Insulin Regular 100 units/ml SC SCH ×4 (06:41→22:17)
--- NOTE | 2018-05-03 08:15 | CP.PCM.PN ---
Subjective - Date & Time of Evaluation Date of Evaluation: 05/03/18 Time of Evaluation: 08:12 - Subjective Subjective: Patient awake and conscious feeling much better no shortness of breath or chest pain Vital signs noted with high blood pressure No nausea no vomiting Objective - Vital Signs/Intake and Output Vital Signs (last 24 hours): Temp Pulse Resp BP Pulse Ox 98.3 F 57 L 18 178/71 H 95 05/03/18 05:35 05/03/18 05:35 05/03/18 05:35 05/03/18 05:35 05/03/18 05:35 - Medications Medications: Current Medications Acetaminophen (Tylenol 325mg Tab) 650 mg PO Q6 PRN PRN Reason: Fever >100.4 F Acetaminophen (Tylenol 325mg Tab) 650 mg PO Q6 PRN PRN Reason: Pain, Mild (1-3) Last Admin: 05/02/18 21:33 Dose: 650 mg Aspirin (Aspirin Chewable) 81 mg PO DAILY [facility] Atorvastatin Calcium (Lipitor) 40 mg PO DAILY [facility] Cinacalcet (Sensipar) 90 mg PO DAILY [facility] Clonidine HCl (Catapres) 0.2 mg PO TID [facility] Dextrose (Dextrose 50% Inj) 0 ml IV STAT PRN; Protocol PRN Reason: Hypoglycemia Protocol Dextrose (Glutose 15) 0 gm PO ONCE PRN; Protocol PRN Reason: Hypoglycemia Protocol Glucagon (Glucagen Diagnostic Kit) 0 mg IM STAT PRN; Protocol PRN Reason: Hypoglycemia Protocol Heparin Sodium (Porcine) (Heparin) 5,000 units SC Q8 [facility]; Protocol Last Admin: 05/03/18 01:21 Dose: 5,000 units Hydralazine HCl (Apresoline) 100 mg PO TID [facility] Last Admin: 05/02/18 18:10 Dose: Not Given Insulin Human Regular (Humulin R) 0 units SC ACHS [facility]; Protocol Last Admin: 05/03/18 06:41 Dose: Not Given Lisinopril (Zestril) 20 mg PO Q12 [facility] Last Admin: 05/02/18 20:53 Dose: 20 mg Pantoprazole Sodium (Protonix Ec Tab) 40 mg PO DAILY [facility] Sevelamer Carbonate (Renvela) 2,400 mg PO TID [facility] Last Admin: 05/02/18 18:11 Dose: Not Given Vitamin B Complex/Vit C/Folic Acid (Nephro-Tao) 1 tab PO DAILY [facility] - Labs Labs: 05/03/18 04:10 05/03/18 04:10 PT 16.2 Seconds (9.8-13.1) H 05/02/18 11:41 INR 1.4 05/02/18 11:41 APTT 39.2 Seconds (25.6-37.1) H 05/02/18 11:41 - Constitutional Appears: No Acute Distress - Eye Exam Eye Exam: Conjunctival injection - ENT Exam ENT Exam: Mucous Membranes Moist - Neck Exam Neck Exam: absent: Lymphadenopathy - Respiratory Exam Respiratory Exam: NORMAL BREATHING PATTERN. absent: Chest Wall Tenderness, Wheezes - Cardiovascular Exam Cardiovascular Exam: REGULAR RHYTHM. absent: Gallop, JVD, Rubs - GI/Abdominal Exam GI & Abdominal Exam: Soft, Normal Bowel Sounds - Extremities Exam Extremities Exam: absent: Calf Tenderness - Back Exam Back Exam: absent: CVA tenderness (L), CVA tenderness (R) - Neurological Exam Neurological Exam: Alert - Psychiatric Exam Psychiatric exam: Normal Affect - Skin Skin Exam: absent: Cyanosis Assessment and Plan (1) Bradycardia Status: Acute (2) Hyperkalemia Status: Acute (3) Anemia Status: Chronic (4) ESRD on dialysis Assessment & Plan: End-stage renal disease on maintenance hemodialysis Monday. Hypertension remain elevated Hyperphosphatemia Secondary hyperparathyroidism Anemia The plan To adjust antihypertensive medication clonidine 0.2 mg 3 times daily every 8 hours Patient was on multiple antihypertensive medication including Norvasc to be added 10 mg daily Patient scheduled for hemodialysis for tomorrow Renal diet Continue Sensipar and phosphorus binders EPO for the anemia Status: Chronic
[2018-05-03] MEDS: Multivitamin Vitamin B Complex (Nephro-Vite) Tab PO SCH (09:35)
[2018-05-03] MEDS: Pantoprazole 40 mg EC Tab PO SCH (09:35)
--- NOTE | 2018-05-03 10:12 | CP.PCM.PN ---
<Whitley Aragon - Last Filed: 05/03/18 10:10> Subjective - Date & Time of Evaluation Date of Evaluation: 05/03/18 Time of Evaluation: 10:10 - Subjective Subjective: Pt seen and examined by bedside this AM. HD overnight, PERI elevated to systolic 218, given multiple BP meds for control No new concerns at this time, doing well. Denies chest pain, dyspnea, n/v. Endorsing minimal R hand pain on IV site. Objective - Vital Signs/Intake and Output Vital Signs (last 24 hours): Temp Pulse Resp BP Pulse Ox 97.8 F 54 L 20 177/62 H 93 L 05/03/18 08:25 05/03/18 09:37 05/03/18 08:25 05/03/18 09:37 05/03/18 08:25 - Medications Medications: Current Medications Acetaminophen (Tylenol 325mg Tab) 650 mg PO Q6 PRN PRN Reason: Fever >100.4 F Acetaminophen (Tylenol 325mg Tab) 650 mg PO Q6 PRN PRN Reason: Pain, Mild (1-3) Last Admin: 05/02/18 21:33 Dose: 650 mg Amlodipine Besylate (Norvasc) 10 mg PO DAILY [facility] Aspirin (Aspirin Chewable) 81 mg PO DAILY [facility] Last Admin: 05/03/18 09:31 Dose: 81 mg Atorvastatin Calcium (Lipitor) 40 mg PO DAILY [facility] Last Admin: 05/03/18 09:34 Dose: 40 mg Cinacalcet (Sensipar) 90 mg PO DAILY [facility] Last Admin: 05/03/18 09:36 Dose: 90 mg Clonidine HCl (Catapres) 0.2 mg PO TID [facility] Dextrose (Dextrose 50% Inj) 0 ml IV STAT PRN; Protocol PRN Reason: Hypoglycemia Protocol Dextrose (Glutose 15) 0 gm PO ONCE [facility]N; Protocol PRN Reason: Hypoglycemia Protocol Glucagon (Glucagen Diagnostic Kit) 0 mg IM STAT PRN; Protocol PRN Reason: Hypoglycemia Protocol Heparin Sodium (Porcine) (Heparin) 5,000 units SC Q8 [facility]; Protocol Last Admin: 05/03/18 09:40 Dose: Not Given Hydralazine HCl (Apresoline) 100 mg PO TID [facility] Last Admin: 05/03/18 09:27 Dose: 100 mg Insulin Human Regular (Humulin R) 0 units SC ACHS [facility]; Protocol Last Admin: 05/03/18 06:41 Dose: Not Given Lisinopril (Zestril) 20 mg PO Q12 [facility] Last Admin: 05/03/18 09:37 Dose: 20 mg Pantoprazole Sodium (Protonix Ec Tab) 40 mg PO DAILY [facility] Last Admin: 05/03/18 09:35 Dose: 40 mg Sevelamer Carbonate (Renvela) 2,400 mg PO TID [facility] Last Admin: 05/03/18 09:36 Dose: 2,400 mg Vitamin B Complex/Vit C/Folic Acid (Nephro-Tao) 1 tab PO DAILY [facility] Last Admin: 05/03/18 09:35 Dose: 1 tab - Labs Labs: 05/03/18 04:10 05/03/18 04:10 PT 16.2 Seconds (9.8-13.1) H 05/02/18 11:41 INR 1.4 05/02/18 11:41 APTT 39.2 Seconds (25.6-37.1) H 05/02/18 11:41 - Constitutional Appears: No Acute Distress - Head Exam Head Exam: NORMAL INSPECTION - Respiratory Exam Respiratory Exam: Clear to Ausculation Bilateral, NORMAL BREATHING PATTERN. absent: Wheezes - Cardiovascular Exam Cardiovascular Exam: REGULAR RHYTHM, +S1, +S2 - GI/Abdominal Exam GI & Abdominal Exam: Soft, Normal Bowel Sounds. absent: Tenderness - Extremities Exam Extremities Exam: Normal Inspection - Neurological Exam Neurological Exam: Alert, Awake Assessment and Plan (1) Bradycardia Status: Acute (2) Hyperkalemia Status: Acute (3) ESRD on dialysis Status: Chronic (4) Anemia Status: Chronic - Assessment and Plan (Free Text) Assessment: Assessment/Plan: 58 YO Female with PMHx of HTN, NIDDM, ESRD (on HD MWF) is admitted for hyperkalemia, bradycardia, and a fib. Hyperkalemia -resolved -likely 2/2 to missed HD -EKG with A fib with LBBB, follow up official read -s/p HD yesterday -Nephrology on consult Arrhythmia -chronic bradycardia -EKG LBBB with bradycardia -Echo 01/25; L atrial enlargement, EF 55-60%, tricuspid regurg -consider cardiology if EKG persists HTN, NIDDM -chronic, HTN uncontrolled -c/w home meds, added additional Bp meds as needed -low dose sliding, hypoglycemia protocol Anemia -chronic -likely 2/2 ESRD DVT prolx: Heparin SC Plan as ordered <Hussain Campbell - Last Filed: 05/04/18 13:31> Objective - Vital Signs/Intake and Output Vital Signs (last 24 hours): Temp Pulse Resp BP Pulse Ox 98.2 F 65 18 143/58 L 98 05/04/18 12:29 05/04/18 12:29 05/04/18 12:29 05/04/18 12:29 05/04/18 12:29 - Medications Medications: Current Medications Acetaminophen (Tylenol 325mg Tab) 650 mg PO Q6 PRN PRN Reason: Fever >100.4 F Acetaminophen (Tylenol 325mg Tab) 650 mg PO Q6 PRN PRN Reason: Pain, Mild (1-3) Last Admin: 05/04/18 01:08 Dose: 650 mg Amlodipine Besylate (Norvasc) 10 mg PO DAILY [facility] Last Admin: 05/04/18 08:28 Dose: 10 mg Aspirin (Aspirin Chewable) 81 mg PO DAILY [facility] Last Admin: 05/04/18 08:27 Dose: 81 mg Atorvastatin Calcium (Lipitor) 40 mg PO DAILY [facility] Last Admin: 05/04/18 08:28 Dose: 40 mg Cinacalcet (Sensipar) 90 mg PO DAILY [facility] Last Admin: 05/04/18 08:30 Dose: 90 mg Clonidine HCl (Catapres) 0.2 mg PO TID [facility] Last Admin: 05/04/18 08:28 Dose: Not Given Dextrose (Dextrose 50% Inj) 0 ml IV STAT PRN; Protocol PRN Reason: Hypoglycemia Protocol Dextrose (Glutose 15) 0 gm PO ONCE PRN; Protocol PRN Reason: Hypoglycemia Protocol Glucagon (Glucagen Diagnostic Kit) 0 mg IM STAT PRN; Protocol PRN Reason: Hypoglycemia Protocol Heparin Sodium (Porcine) (Heparin) 5,000 units SC Q8 [facility]; Protocol Last Admin: 05/04/18 08:40 Dose: Not Given Hydralazine HCl (Apresoline) 100 mg PO TID [facility] Last Admin: 05/04/18 08:27 Dose: 100 mg Insulin Human Regular (Humulin R) 0 units SC ACHS [facility]; Protocol Last Admin: 05/04/18 06:48 Dose: 1 unit Lisinopril (Zestril) 20 mg PO Q12 [facility] Last Admin: 05/04/18 08:31 Dose: 20 mg Pantoprazole Sodium (Protonix Ec Tab) 40 mg PO DAILY [facility] Last Admin: 05/04/18 08:29 Dose: 40 mg Sevelamer Carbonate (Renvela) 2,400 mg PO TID [facility] Last Admin: 05/04/18 08:29 Dose: 2,400 mg Vitamin B Complex/Vit C/Folic Acid (Nephro-Tao) 1 tab PO DAILY [facility] Last Admin: 05/04/18 08:28 Dose: 1 tab - Labs Labs: 05/03/18 04:10 05/03/18 04:10 PT 16.2 Seconds (9.8-13.1) H 05/02/18 11:41 INR 1.4 05/02/18 11:41 APTT 39.2 Seconds (25.6-37.1) H 05/02/18 11:41 Assessment and Plan - Assessment and Plan (Free Text) Assessment: Patient was personally seen and examined by me in rounds with residents. Available labs and diagnostic data reviewed. Case, Patient's condition and management plan discussed with residents in rounds . Agree with resident's progress note. Plan: As ordered.
[2018-05-03 12:41] LABS: HEPATITIS B SURFACE AG Negative (NEGATIVE)
[2018-05-03 12:46] LABS: HEPATITIS B CORE AB NEGATIVE (NEGATIVE)
[2018-05-03 12:59] LABS: HEPATITIS C ANTIBODY NEGATIVE (NEGATIVE)
[2018-05-04] MEDS: Insulin Regular 100 units/ml SC SCH ×3 (06:48→17:44)
--- NOTE | 2018-05-04 08:18 | CP.PCM.DIS ---
Provider - Provider Date of Admission: 05/02/18 13:09 Attending physician: Hussain Campbell MD Consults: 05/02/18 13:16 Nephrology Consult Stat Comment: Consulting Provider: Shiv Mai Consulting Physician: Shiv Mai Reason for Consult: Hyperkalemia 05/02/18 18:30 Cardiology Consult Routine Comment: Consulting Provider: Donald Burton Consulting Physician: Donald Burton Reason for Consult: AFIB W/ LOW HEART RATE 05/02/18 19:50 Social Work Referral Routine Comment: On HD MWF Physician Instructions: Reason For Exam: Dialysis patient Time Spent in preparation of Discharge (in minutes): 35 Diagnosis - Discharge Diagnosis (1) Bradycardia Status: Acute (2) Hyperkalemia Status: Acute (3) ESRD on dialysis Status: Chronic (4) Anemia Status: Chronic Hospital Course - Lab Results Lab Results: Most Recent Lab Values WBC 4.6 K/uL (4.8-10.8) L 05/03/18 04:10 RBC 3.33 Mil/uL (3.80-5.20) L 05/03/18 04:10 Hgb 9.7 g/dL (12.0-16.0) L 05/03/18 04:10 Hct 29.5 % (34.0-47.0) L 05/03/18 04:10 MCV 88.6 fl (81.0-99.0) D 05/03/18 04:10 MCH 29.1 pg (27.0-31.0) 05/03/18 04:10 MCHC 32.8 g/dL (33.0-37.0) L 05/03/18 04:10 RDW 16.8 % (11.5-14.5) H 05/03/18 04:10 Plt Count 135 K/uL (130-400) 05/03/18 04:10 MPV 10.4 fl (7.2-11.7) 05/03/18 04:10 Neut % (Auto) 72.3 % (50.0-75.0) 05/03/18 04:10 Lymph % (Auto) 14.2 % (20.0-40.0) L 05/03/18 04:10 Lane % (Auto) 9.9 % (0.0-10.0) 05/03/18 04:10 Eos % (Auto) 2.2 % (0.0-4.0) 05/03/18 04:10 Baso % (Auto) 1.4 % (0.0-2.0) 05/03/18 04:10 Neut # (Auto) 3.3 K/uL (1.8-7.0) 05/03/18 04:10 Lymph # (Auto) 0.7 K/uL (1.0-4.3) L 05/03/18 04:10 Lane # (Auto) 0.5 K/uL (0.0-0.8) 05/03/18 04:10 Eos # (Auto) 0.1 K/uL (0.0-0.7) 05/03/18 04:10 Baso # (Auto) 0.1 K/uL (0.0-0.2) 05/03/18 04:10 PT 16.2 Seconds (9.8-13.1) H 05/02/18 11:41 INR 1.4 05/02/18 11:41 APTT 39.2 Seconds (25.6-37.1) H 05/02/18 11:41 Sodium 135 mmol/l (132-148) 05/03/18 04:10 Potassium 3.6 MMOL/L (3.6-5.0) 05/03/18 04:10 Chloride 95 mmol/L (98-107) L 05/03/18 04:10 Carbon Dioxide 28 mmol/L (22-30) 05/03/18 04:10 Anion Gap 16 (10-20) 05/03/18 04:10 BUN 29 mg/dl (7-17) H 05/03/18 04:10 Creatinine 2.8 mg/dl (0.7-1.2) H 05/03/18 04:10 Est GFR ( Amer) 21 05/03/18 04:10 Est GFR (Non-Af Amer) 17 05/03/18 04:10 POC Glucose (mg/dL) 163 mg/dL (65-110) H 05/04/18 05:39 Random Glucose 123 mg/dL (65-105) H 05/03/18 04:10 Calcium 8.2 mg/dL (8.4-10.2) L 05/03/18 04:10 Total Bilirubin 0.4 mg/dl (0.2-1.3) 05/03/18 04:10 AST 32 U/L (14-36) 05/03/18 04:10 ALT 38 U/L (9-52) 05/03/18 04:10 Alkaline Phosphatase 148 U/L (38-126) H 05/03/18 04:10 Troponin I 0.0200 ng/mL (0.00-0.120) 05/02/18 11:41 Total Protein 7.2 G/DL (6.3-8.2) 05/03/18 04:10 Albumin 3.7 g/dL (3.5-5.0) 05/03/18 04:10 Globulin 3.6 gm/dL (2.2-3.9) 05/03/18 04:10 Albumin/Globulin Ratio 1.0 (1.0-2.1) 05/03/18 04:10 Hep Bs Antigen Negative (NEGATIVE) 05/02/18 19:58 Hep Bs Antibody, Quant >1000 mIU/mL (>or=10) 05/02/18 19:58 Hep B Core IgM Ab Negative (NEGATIVE) 05/02/18 19:58 Hepatitis C Antibody Negative (NEGATIVE) 05/02/18 19:58 - Hospital Course Hospital Course: 58 YO Female with PMHx of HTN, NIDDM, ESRD (on HD MWF) is admitted for hyperkalemia, and bradycardia. Hyperkalemia resolved after urgent HD. During the course of the admission, pt was found to have uncontrolled HTN, additional antihypertensive was added to the existing BP regimen to better control her bp. Pt doing well this AM, no new c/o and wants to go home. Pt to be d/c home after HD today, c/w current HD regimen MWF and follow up with PMD in 1 week. Discharge Exam - Head Exam Head Exam: NORMAL INSPECTION - Eye Exam Eye Exam: Normal appearance - ENT Exam ENT Exam: Mucous Membranes Moist - Respiratory Exam Respiratory Exam: Clear to PA & Lateral, NORMAL BREATHING PATTERN. absent: Wheezes - Cardiovascular Exam Cardiovascular Exam: REGULAR RHYTHM, +S1, +S2 - GI/Abdominal Exam GI & Abdominal Exam: Normal Bowel Sounds, Soft. absent: Tenderness - Neurological Exam Neurological exam: Alert, Oriented x3 Discharge Plan - Discharge Medications Prescriptions: amLODIPine [Norvasc] 10 mg PO DAILY #30 tab Aspirin [Aspirin Chewable] 81 mg PO DAILY #30 chew Atorvastatin [Lipitor] 40 mg PO DAILY #30 tab Cinacalcet [Sensipar] 90 mg PO DAILY #30 tab Folic Acid/Vit B Complex and C [Renal Vitamin Tablet] 1 tab PO DAILY #30 tablet hydrALAZINE [Apresoline] 100 mg PO TID #90 tab Lisinopril [Zestril] 20 mg PO Q12 #60 tab Pantoprazole [Protonix EC Tab] 40 mg PO DAILY #30 ect - Follow Up Plan Condition: GOOD Disposition: HOME/ ROUTINE Patient education suggested?: Yes Instructions: Hyperkalemia (DC), Bradycardia (DC), End Stage Kidney Disease (DC) Additional Instructions: continue dialysis mwf Follow up with PMD in 1 week Referrals: Hussain Campbell MD [Family Provider] - Shiv Mai MD [Staff Provider] -
[2018-05-04] MEDS: Multivitamin Vitamin B Complex (Nephro-Vite) Tab PO SCH (08:28)
[2018-05-04] MEDS: Pantoprazole 40 mg EC Tab PO SCH (08:29)
--- NOTE | 2018-05-04 10:37 | CP.PCM.PN ---
Subjective - Date & Time of Evaluation Date of Evaluation: 05/04/18 Time of Evaluation: 10:35 - Subjective Subjective: renal follow up note no events overnight VSS heent normal no jvd [id number] noresp distress abd soft skin normal AO times 3 cooeprative End-stage renal disease on maintenance hemodialysis Monday. Hypertension Hyperphosphatemia Secondary hyperparathyroidism Anemia hyperkalemia continue hd mwf per schedule lytes improved bp continue current meds and low salt diet, clonidine increased yesterday will take 1-2 days for full effect monitor phos levels on binders and sensipar anemia stable epo as needed with hd for possible dc today Objective - Vital Signs/Intake and Output Vital Signs (last 24 hours): Temp Pulse Resp BP Pulse Ox 98.3 F 55 L 18 181/74 H 97 05/04/18 07:52 05/04/18 07:52 05/04/18 07:52 05/04/18 07:52 05/04/18 07:52 - Medications Medications: Current Medications Acetaminophen (Tylenol 325mg Tab) 650 mg PO Q6 PRN PRN Reason: Fever >100.4 F Acetaminophen (Tylenol 325mg Tab) 650 mg PO Q6 PRN PRN Reason: Pain, Mild (1-3) Last Admin: 05/04/18 01:08 Dose: 650 mg Amlodipine Besylate (Norvasc) 10 mg PO DAILY [facility] Last Admin: 05/04/18 08:28 Dose: 10 mg Aspirin (Aspirin Chewable) 81 mg PO DAILY [facility] Last Admin: 05/04/18 08:27 Dose: 81 mg Atorvastatin Calcium (Lipitor) 40 mg PO DAILY [facility] Last Admin: 05/04/18 08:28 Dose: 40 mg Cinacalcet (Sensipar) 90 mg PO DAILY [facility] Last Admin: 05/04/18 08:30 Dose: 90 mg Clonidine HCl (Catapres) 0.2 mg PO TID [facility] Last Admin: 05/04/18 08:28 Dose: Not Given Dextrose (Dextrose 50% Inj) 0 ml IV STAT PRN; Protocol PRN Reason: Hypoglycemia Protocol Dextrose (Glutose 15) 0 gm PO ONCE PRN; Protocol PRN Reason: Hypoglycemia Protocol Glucagon (Glucagen Diagnostic Kit) 0 mg IM STAT PRN; Protocol PRN Reason: Hypoglycemia Protocol Heparin Sodium (Porcine) (Heparin) 5,000 units SC Q8 [facility]; Protocol Last Admin: 05/04/18 08:40 Dose: Not Given Hydralazine HCl (Apresoline) 100 mg PO TID [facility] Last Admin: 05/04/18 08:27 Dose: 100 mg Insulin Human Regular (Humulin R) 0 units SC ACHS [facility]; Protocol Last Admin: 05/04/18 06:48 Dose: 1 unit Lisinopril (Zestril) 20 mg PO Q12 [facility] Last Admin: 05/04/18 08:31 Dose: 20 mg Pantoprazole Sodium (Protonix Ec Tab) 40 mg PO DAILY [facility] Last Admin: 05/04/18 08:29 Dose: 40 mg Sevelamer Carbonate (Renvela) 2,400 mg PO TID [facility] Last Admin: 05/04/18 08:29 Dose: 2,400 mg Vitamin B Complex/Vit C/Folic Acid (Nephro-Tao) 1 tab PO DAILY [facility] Last Admin: 05/04/18 08:28 Dose: 1 tab - Labs Labs: 05/03/18 04:10 05/03/18 04:10 PT 16.2 Seconds (9.8-13.1) H 05/02/18 11:41 INR 1.4 05/02/18 11:41 APTT 39.2 Seconds (25.6-37.1) H 05/02/18 11:41
[2018-05-04 16:06] VITALS: BP 159/69; RESP 20; TEMP 98.6; O2SAT 100
[2018-05-07 10:32] VITALS: PULSE 37
== END 2018-05-04 18:27 | disposition home or self-care (01) | DRG 296 ==
LOC: H.ER 10:52 → H.ERHOLD 13:09 → H.TEL 16:12
PROVIDERS: ADMIT Internal Medicine; ATTEND Internal Medicine
PROC: 5A1D70Z Performance of Urinary Filtration, Intermittent, Less than 6 Hours Per Day (ICD-10-PCS; principal; 2018-05-03)
DX: E87.5 Hyperkalemia (principal); I12.0 Hypertensive chronic kidney disease with stage 5 chronic kidney disease or end stage renal disease; N18.6 End stage renal disease; E11.22 Type 2 diabetes mellitus with diabetic chronic kidney disease; J44.9 Chronic obstructive pulmonary disease, unspecified; I07.1 Rheumatic tricuspid insufficiency; R00.1 Bradycardia, unspecified; N25.81 Secondary hyperparathyroidism of renal origin; Z99.2 Dependence on renal dialysis; E83.39 Other disorders of phosphorus metabolism; D63.1 Anemia in chronic kidney disease; I48.91 Unspecified atrial fibrillation; E78.00 Pure hypercholesterolemia, unspecified; I44.7 Left bundle-branch block, unspecified; Z79.84 Long term (current) use of oral hypoglycemic drugs; Z79.82 Long term (current) use of aspirin; Z89.412 Acquired absence of left great toe